=== PATIENT | male | born 2000 | race Caucasian/White ===

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

== ENCOUNTER 2019-04-10 12:56 | Inpatient (IN) ==
[2019-04-10 13:37] LABS: Basophils # (auto) 0.02 K/uL (0-0.2); Basophils % (auto) 0.3 %; Eosinophils # (auto) 0.29 K/uL (0-0.5); Eosinophils % (auto) 5.1 %; Hematocrit (blood only) 27.7 % (42-52); Hemoglobin 8.1 g/dL (14.0-18.0); Immature Granulocytes # (auto) 0.02 K/uL (0.00-0.02); Immature Granulocytes % (auto) 0.3 %; Lymphocytes % (auto) 40.2 %; Mean Corpuscular Hgb Conc 29.2 g/dL (32-36); Mean Corpuscular Volume 62.8 fL (80-100); Monocytes # (auto) 0.87 K/uL (0.11-0.59); Monocytes % (auto) 15.2 %; Neutrophils # (auto) 2.22 K/uL (1.4-6.5); Neutrophils % (auto) 38.9 %; Platelet Count 535 K/uL (130-400); RDW Coefficient of Variation 17.7 % (11.5-14.5); RDW Standard Deviation 40.4 fL (36.4-46.3); Red Blood Count 4.41 M/uL (4.7-6.1); White Blood Count 5.72 K/uL (4.8-10.8)
[2019-04-10 13:48] LABS: iSTAT Creatinine 0.8 mg/dl; iSTAT Hemoglobin 9.2 g/dl (14.0-18.0); iSTAT Ionized Calcium 1.14 mmol/l; iSTAT Potassium 4.1 mEq/L (3.3-5.0)
[2019-04-10 13:51] LABS: Partial Thromboplastin Time 26.8 Seconds (21.0-31.0); Prothrombin Time 9.8 Seconds (9.0-12.0)
[2019-04-10 13:53] LABS: Alanine Aminotransferase 10 U/L (12-78); Aspartate Aminotransferase 10 U/L (15-37); BUN Creatinine Ratio 25.1 (10-20); Blood Urea Nitrogen 21 mg/dl (7-18); Calcium 8.5 mg/dl (8.5-10.1); Carbon Dioxide 25 mmol/L (21-32); Chloride 108 mmol/L (98-107); Creatinine Clr Calc Pharmacy 114.2 ml/min; Est GFR (African American) 148.6; Est GFR (Non-African American) 128.2; Glucose 94 mg/dl (70-99); Potassium 4.2 mmol/L (3.5-5.1); Sodium 140 mmol/L (136-145)
[2019-04-10 13:56] LABS: Albumin Globulin Ratio 0.5 (0.9-2); Alkaline Phosphatase 140 U/L (45-117); Bilirubin,Total < 0.1 mg/dl (0.2-1); Globulin 4.1 gm/dl (2.5-4.0); Total Protein 6.1 gm/dl (6.4-8.2)
[2019-04-10 14:24] LABS: Hypochromasia Present; Microcytosis Present
--- NOTE | 2019-04-10 14:31 | XRay Report ---
XR KUB/Abdomen 1 view CLINICAL HISTORY: constiation constipation COMPARISON STUDY: 04/09/2019 FINDINGS: Persistent extensive colonic fecal load. Slightly improved diameter of the descending colon currently 10 cm. Persistent increased distention of the transverse colon measuring up to 16 cm. This is similar. No significant and are only minimal small bowel distention. No rectal fecal impaction. IMPRESSION: Persistent marked increased fecal load throughout the colon showing a slight improvement in distention at the descending colonic level. Persistent and perhaps slightly progressive distentio n of the transverse colon at 16 cm maximum diameter The above report was generated using voice recognition software. It may contain grammatical, syntax or spelling errors. Electronically signed by: Carlos Beckett M.D. 04/10/2019 2:29 PM
[2019-04-10 15:50] LABS: Immature Retic Fraction 13.7 % (2.3-13.4); Reticulated Hemoglobin 15.2 pg (28.2-36.6); Reticulocyte % 1.3 % (0.5-2.0); Reticulocytes # 0.06 10^6/uL (0.02-0.10)
[2019-04-10 16:00] LABS: Appearance Urine Clear (Clear); Bilirubin Urine Negative (Negative); Blood Urine Negative (Negative); Color Urine Yellow; Glucose Urine UA Negative (Negative); Ketones Urine Negative (Negative); Leukocyte Esterase Urine Negative (Negative); Nitrite Urine Negative (Negative); Protein Urine Negative (Negative); Specific Gravity Urine 1.025 (1.000-1.030); Urobilinogen Urine Negative (Negative); pH Urine 8.5 (4.5-7.5)
[2019-04-10 16:27] LABS: Cdiff Antigen Negative; Cdiff Toxin A+B Negative Cdiff Toxin (Negative)
--- NOTE | 2019-04-10 16:41 | History & Physical Report ---
Date of Service April 10, 2019 Assessment & Plan (1) Microcytic anemia: Dion is a 18 year old male with hx of congenital megacolon s/p partial colon resection presenting to the emergency room with abnormal labs. 1. Microcytic anemia, asymptomatic - hemoglobin 8.1, MCV 62.8 - iron studies are pending - no symptoms of GI bleed and FOBT in ED negative 2. congenital megacolon - s/p partial colon resection - not yet established with GI, but per ED conversation with GI, ?thinking about scoping patient. - GI consulted, appreciate recommendations - Will defer to GI regarding colonoscopy prep 3. Loose stool and stool leakage - may be secondary to impacted stool or more likely limited function of his remaining large intestine to absorb fluid - c. diff and stool studies ordered by ED provider pending 4. dysphagia - may benefit from upper endoscopy to evaluate for reflux vs rings vs stricture. - oral PPI in the meantime, which was originally prescribed by his PCP 5. hypoalbuminemia - secondary to either protein malnutrition (intake vs absorption) vs chronic illness 5. ADHD - continue home Vyvanse 60mg FEN: clears for dinner then NPO at MN + NS at 80/hr. If colonoscopy is not going to be tomorrow, ok to eat. DVT ppx: SCDs CODE: FULL Dispo: pending anemia/GI work up Present on Admission?: Yes (2) ADHD: Present on Admission?: Yes (3) Hypoalbuminemia: Present on Admission?: Yes (4) Megacolon: Present on Admission?: Yes History of Present Illness Dion is a 18 year old male with hx of congential megacolon s/p partial colon resection presenting to the emergency room with abnormal labs. He was seen by his PCP yesterday for abdominal pain which has since resolved. Labs done by his PCP show a new anemia with a hemoglobin of 8.1. Denies dizziness, chest pain. Did take up cigarette smoking 2 weeks ago and notes that this has made him dyspneic with exertion. As a child, he was followed by providers at [facility] in [place] for his megacolon. He has had a resection of part of the large intestine because "it wasn't working". However, grandmother reports that there are still sections of the colon that they were told do not work well that were not able to be resected because it would make the surgery too risky. He has not followed with a GI provider recently. He was referred to Dr. Young as an outpatient, but actually has not yet established with him. He does admit to some intermittent, chronic abdominal pain. Reports that he will pain about once per week, but once he is able to get the stool out, his abdominal pain improves. He reports that his stool is chronically liquidy and he does leak stool. Stool is usually brown liquid. Denies any dark or tarry looking stools. Denies nausea or vomiting. More recently, he has been complaining of difficulty swallowing food. He reports that he feels that the food get stuck in his throat. This is mostly with food that is dry, like bread, or too large. Denies dysphagia with liquids. He has been prescribed both a PPI and H2 wan by his PCP recently, but patient and his family has not had a chance to vegetable picker the prescriptions yet. ED course: KUB showing persistent marked increased fecal load throughout the colon, persistent and ?progressive distention of the transverse colon (16cm in diameter at the max dilation). hemoglobin 8.1 with MCV 62.8 FOBT in the ED was negative (per grandmother, patient declined rectal exam) Electrolytes are within normal range. Primary Care Provider: ALDO Khan Allergies Allergy/AdvReac Type Severity Reaction Status Date / Time No Known Allergies Allergy NONE Unverified 04/10/19 15:01 Home Medications Home Medications Medication Instructions Recorded Confirmed Type lisdexamfetamine [Vyvanse] 60 mg PO DAILY #0 cap 02/13/15 04/10/19 History omeprazole 20 mg capsule,delayed 20 mg PO DAILY #30 cap 04/09/19 04/10/19 Rx release ranitidine 150 mg tablet 150 mg PO DAILY #30 tab 04/09/19 04/10/19 Rx Past Med/Surg History Medical History ADHD Surgical History History of colon resection (Resolved) H/O colonoscopy (Resolved) Social History Feels Safe at Home: Yes Smoking Status: Former smoker Dental Care, Regularly: No Review of Systems Review of Systems: All systems reviewed & are unremarkable except as noted in HPI & below Physical Exam Constitutional: + thin; no acute distress and not ill appearing Eyes: PERRL, conjunctivae normal, anicteric sclerae ENMT: external ear and nose normal, oropharynx normal Neck: normal visual inspection Respiratory: normal respiratory effort, lungs clear to auscultation Cardiovascular: Rate/Rhythm: regular rhythm and + tachycardic Heart Sounds: normal S1 and normal S2; no gallop, no murmur and no cardiac rub Gastrointestinal (Abdomen): Inspection/Auscultation: normal bowel sounds Decreased bowel sounds. Firm but nontender across the upper abdomen. Lower abdomen is soft. No rebound or guarding with exam. Rectal exam deferred. Skin: no rashes, warm and dry Neurologic: moves all extremities; no focal motor deficits Motor/Sensory: no tremor Psychiatric: A+Ox3, euthymic affect Results & Data Vital Signs (Past 12 Hours) Vital Signs Temp Pulse Pulse Resp BP BP Pulse Ox 04/10/19 15:43 107 H 18 118/78 100 04/10/19 13:54 92 H 16 139/87 100 04/10/19 13:01 36.9 C 94 H 20 120/70 100 Code Status & VTE Plan Code Status FULL VTE Prophylaxis Plan VTE Prophylaxis will be ordered: Yes
[2019-04-10] MEDS ORDERED: ACETAMINOPHEN 325 MG TAB PO PRN (18:07)
--- NOTE | 2019-04-10 18:23 | Emergency Department Note ---
Entered by Elena Shields acting as a scribe for History of Present Illness General Chief complaint: Abnormal Labs/Diagnostic Testing Stated complaint: VERY ANEMIC,DOCTOR WORRIED ABOUT BLEEDING Time Seen by Provider: 04/10/19 13:11 Source: patient and family History of Present Illness Provider complaint: doctor referral Onset (ago): hour(s) (today) Location: left and right Quality: + other (anemia) Associated symptoms: + denies other symptoms (abdominal pain, black or bloody stool); no nausea/vomiting The patient is a 18 year old male who presents to the Emergency Department with a doctor referral today secondary to anemia today. His mother states that the patient is seen at [facility] for a megacolon. Per family, the patient has a history of a colon resection. The patient denies having abdominal pain, nausea, and vomiting. He also denies black or bloody stool in addition to rectal bleeding. The patient states that he is not on any blood thinners. Home Medications Home Medications Medication Instructions Recorded Confirmed Type lisdexamfetamine [Vyvanse] 60 mg PO DAILY #0 cap 02/13/15 04/10/19 History omeprazole 20 mg capsule,delayed 20 mg PO DAILY #30 cap 04/09/19 04/10/19 Rx release ranitidine 150 mg tablet 150 mg PO DAILY #30 tab 04/09/19 04/10/19 Rx Allergies Allergy/AdvReac Type Severity Reaction Status Date / Time No Known Allergies Allergy NONE Unverified 04/10/19 15:01 Past Med/Surg History Medical History ADHD Surgical History History of colon resection (Resolved) H/O colonoscopy (Resolved) Family History Family/Other No problems noted. Social History Preferred Language: Danish Communication Ability: Effective Costume Technician Required: No Beliefs That Will Affect Care: None Current Living Situation: Legal Guardian Other Information That Helps Us Care for You: No Feels Safe at Home: Yes Safety Concerns: Feels Safe At This Time Smoking Status: Light tobacco smoker Tobacco Type: cigarettes Cigarettes Per Day: 1 Do You Dip or Chew Tobacco: No Second Hand Exposure: Yes Tobacco Cessation Education Requested by Patient: No Hx Alcohol Use: No Hx Substance Use: No Dental Care, Regularly: No Review of Systems See HPI for pertinent positives & negatives. and A total of 10 systems reviewed and were otherwise negative Physical Exam Vital Signs Vital Signs - 24 hr 04/10/19 13:01 04/10/19 13:54 04/10/19 15:43 Temperature 36.9 C Temperature Source Oral Sepsis Recent Fever Within 48 Hours No Sepsis New/Unexplained Change in Mental Status No Sepsis Action Taken by Nursing No Action Required Pulse Rate 94 H Pulse Rate [Apical] 92 H 107 H Respiratory Rate 20 16 18 Respiratory Effort / Characteristics Non-Labored Spontaneous Non-Labored Spontaneous Respiratory Depth Normal Normal Respiratory Pattern Regular Regular Blood Pressure 120/70 Blood Pressure [Right Arm] 139/87 118/78 Blood Pressure Mean 86 Blood Pressure Mean [Right Arm] 104 91 Blood Pressure Position Sitting Blood Pressure Position [Right Arm] Sitting Pulse Oximetry 100 100 100 Oxygen Delivery Method Room Air Room Air Room Air GENERAL: Patient is awake, alert, and in no acute distress.Patient is resting comfortably and is somewhat anxious. EYES: The conjunctivae are clear. The pupils are round and reactive. EARS, NOSE, MOUTH AND THROAT: The nose is without any evidence of any deformity. Mucous membranes are moist.Tongue is midline NECK: The neck is nontender and supple. RESPIRATORY: Normal respiratory effort is noted. There is no evidence of wheezing rhonchi or rales to auscultation. CARDIOVASCULAR: Regular rate and rhythm noted. There no murmurs rubs or gallops normal S1 normal S2 GASTROINTESTINAL: The abdomen is soft. Abdomen is moderately distended. Bowel sounds are present in all quadrants. Abdomen is nontender. No guarding or rig idity. STOOL SAMPLE: Stool sample was sent. It was heme negative. MUSCULOSKELETAL/EXTREMITIES: There is no evidence of gross deformity. Full range of motion is noted in the hips and shoulders. SKIN: There is no obvious evidence of any rash. There are no petechiae, pallor or cyanosis noted. NEUROLOGIC: Patient is awake alert and oriented x3. Course 1312: The patient was evaluated in room A12B. A history and physical were performed. 1448: I discussed the patient's case with Dr. Cristina who said that he will see the patient as an inpatient. 1459: I updated the patient who verbalized agreement and understanding of the treatment plan. 1512: I discussed the patient's case with Dr. Sarina Resendiz who will evaluate the patient for further management. Consultations Consultation #1: Dr. Cristina Time: 14:48 Consultation #2: Dr. Sarina Resendiz Time: 15:12 Administered Medications Pantoprazole Sodium (Protonix) 40 mg PO QAM LIZZY Stop: 05/11/19 08:59 Last Admin: 04/11/19 09:15 Dose: 40 mg Documented by: [id number] Discontinued Medications Bisacodyl (Dulcolax) 20 mg PO NOW STA Stop: 04/11/19 09:21 Last Admin: 04/11/19 10:33 Dose: 20 mg Documented by: [id number] Sodium Chloride (Nss 1000ml) 1,000 mls @ 80 mls/hr IV .[id number] LIZZY Stop: 05/11/19 00:00 Last Infusion: 04/11/19 16:49 Dose: 0 mls/hr Documented by: [id number] Admin: 04/11/19 10:37 Dose: 80 mls/hr Documented by: [id number] Infusion: 04/11/19 10:37 Dose: 80 mls/hr Documented by: [id number] Infusion: 04/11/19 06:23 Dose: 80 mls/hr Documented by: [id number] Admin: 04/10/19 23:55 Dose: 80 mls/hr Documented by: [id number] Iron Sucrose 300 mg/ Sodium (Chloride) 265 mls @ 176.667 mls/hr IV TODAY ONE Stop: 04/11/19 15:44 Last Infusion: 04/11/19 18:43 Dose: 0 mls/hr Documented by: [id number] Admin: 04/11/19 15:15 Dose: 176.7 mls/hr Documented by: [id number] Miscellaneous (Order Awaiting Action) 1 ea N/A QS LIZZY Stop: 05/11/19 00:00 Last Admin: 04/11/19 10:31 Dose: Not Given Documented by: [id number] Admin: 04/10/19 23:56 Dose: Not Given Documented by: [id number] Polyethylene Glycol (Miralax) 238 gm PO NOW ONE Stop: 04/11/19 18:00 Last Admin: 04/11/19 18:49 Dose: 238 gm Documented by: [id number] Polyethylene Glycol/Electrolytes (Golytely) 16 dose PO TODAY@1000 LIZZY Stop: 04/11/19 10:01 Last Admin: 04/11/19 10:33 Dose: 16 dose Documented by: [id number] Medical Decision Making Differential Diagnosis Differential diagnosis: Etiologies such as biliary colic, cholecystitis, hepatitis, pancreatitis, cardiac disease, pancreatitis, gastritis, peptic ulcer disease, appendicitis, cystitis, diverticulitis, mesenteric ischemia, inflammatory bowel disease, ileus, bowel obstruction, testicular torsion, aortic pathology, shingles, as well as others were considered. Medical Records Attestation: I reviewed the patient's medical records. Home Medications Current Medication List: was personally reviewed by me Laboratory Data Attestation: I reviewed the patient's lab results. Result diagrams: 04/11/19 07:59 04/10/19 13:23 Lab Results 04/10/19 04/10/19 04/10/19 Range/Units 13:19 13:23 13:23 WBC 5.72 (4.8-10.8) K/uL RBC 4.41 L (4.7-6.1) M/uL Hgb 8.1 L (14.0-18.0) g/dL POC Hgb (14.0-18.0) g/dl Hct 27.7 L (42-52) % POC Hct (42-52) % MCV 62.8 L (80-100) fL MCH 18.4 L (25-34) pg MCHC 29.2 L (32-36) g/dL RDW Std Deviation 40.4 (36.4-46.3) fL RDW Coeff of Paul 17.7 H (11.5-14.5) % Plt Count 535 H (130-400) K/uL MPV 8.0 (7.4-10.4) fL Immature Gran % (Auto) 0.3 % Neut % (Auto) 38.9 % Lymph % (Auto) 40.2 % [place] % (Auto) 15.2 % Eos % (Auto) 5.1 % Baso % (Auto) 0.3 % Reticulocyte % (Auto) (0.5-2.0) % Immature Gran # (Auto) 0.02 (0.00-0.02) K/uL Neut # (Auto) 2.22 (1.4-6.5) K/uL Lymph # (Auto) 2.30 (1.2-3.4) K/uL [place] # (Auto) 0.87 H (0.11-0.59) K/uL Eos # (Auto) 0.29 (0-0.5) K/uL Baso # (Auto) 0.02 (0-0.2) K/uL Reticulocyte # (0.02-0.10) 10^6/uL Hypochromasia Present Microcytosis Present Immature Retic Fraction (2.3-13.4) % Retic Hgb Content (28.2-36.6) pg PT 9.8 (9.0-12.0) Seconds INR 1.0 (0.9-1.1) APTT 26.8 (21.0-31.0) Seconds PTT Ratio 1.0 POC Sodium (135-144) mEq/L Sodium (136-145) mmol/L POC Potassium (3.3-5.0) mEq/L Potassium (3.5-5.1) mmol/L POC Chloride (101-112) mEq/L Chloride (98-107) mmol/L Carbon Dioxide (21-32) mmol/L POC Total CO2 (24-31) mEq/l Anion Gap (3-11) POC Anion Gap (16-25) mmol/L POC BUN (7-18) mg/dl BUN (7-18) mg/dl Creatinine (0.6-1.4) mg/dl POC Creatinine mg/dl Est Cr Clr Drug Dosing ml/min Est GFR ( Amer) Est GFR (Non-Af Amer) BUN/Creatinine Ratio (10-20) Glucose (70-99) mg/dl POC Glucose (other) (70-99) mg/dl Calcium (8.5-10.1) mg/dl POC Ioniz Calcium Sonya mmol/l Iron (35-175) mcg/dl TIBC (250-450) mcg/dl Ferritin (8-388) ng/ml Total Bilirubin (0.2-1) mg/dl AST (15-37) U/L ALT (12-78) U/L Alkaline Phosphatase (45-117) U/L Total Protein (6.4-8.2) gm/dl Albumin (3.4-5.0) gm/dl Globulin (2.5-4.0) gm/dl Albumin/Globulin Ratio (0.9-2) Lipase (73-393) U/L Urine Color Urine Appearance (Clear) Urine pH (4.5-7.5) Ur Specific Gilbert (1.000-1.030) Urine Protein (Negative) Urine Glucose (UA) (Negative) Urine Ketones (Negative) Urine Blood (Negative) Urine Nitrite (Negative) Urine Bilirubin (Negative) Urine Urobilinogen (Negative) Ur Leukocyte Esterase (Negative) Stl C. diff Tox B Gene Positive Cdiff Gene H (Neg) Stl C.difficile Tox A&B Negative Cdiff Toxin (Negative) Blood Type Antibody Screen 04/10/19 04/10/19 04/10/19 Range/Units 13:23 13:23 13:23 WBC (4.8-10.8) K/uL RBC (4.7-6.1) M/uL Hgb (14.0-18.0) g/dL POC Hgb (14.0-18.0) g/dl Hct (42-52) % POC Hct (42-52) % MCV (80-100) fL MCH (25-34) pg MCHC (32-36) g/dL RDW Std Deviation (36.4-46.3) fL RDW Coeff of Paul (11.5-14.5) % Plt Count (130-400) K/uL MPV (7.4-10.4) fL Immature Gran % (Auto) % Neut % (Auto) % Lymph % (Auto) % [place] % (Auto) % Eos % (Auto) % Baso % (Auto) % Reticulocyte % (Auto) 1.3 (0.5-2.0) % Immature Gran # (Auto) (0.00-0.02) K/uL Neut # (Auto) (1.4-6.5) K/uL Lymph # (Auto) (1.2-3.4) K/uL [place] # (Auto) (0.11-0.59) K/uL Eos # (Auto) (0-0.5) K/uL Baso # (Auto) (0-0.2) K/uL Reticulocyte # 0.06 (0.02-0.10) 10^6/uL Hypochromasia Microcytosis Immature Retic Fraction 13.7 H (2.3-13.4) % Retic Hgb Content 15.2 L (28.2-36.6) pg PT (9.0-12.0) Seconds INR (0.9-1.1) APTT (21.0-31.0) Seconds PTT Ratio POC Sodium (135-144) mEq/L Sodium 140 (136-145) mmol/L POC Potassium (3.3-5.0) mEq/L Potassium 4.2 (3.5-5.1) mmol/L POC Chloride (101-112) mEq/L Chloride 108 H (98-107) mmol/L Carbon Dioxide 25 (21-32) mmol/L POC Total CO2 (24-31) mEq/l Anion Gap 6.0 (3-11) POC Anion Gap (16-25) mmol/L POC BUN (7-18) mg/dl BUN 21 H (7-18) mg/dl Creatinine 0.82 (0.6-1.4) mg/dl POC Creatinine mg/dl Est Cr Clr Drug Dosing 114.2 ml/min Est GFR ( Amer) 148.6 Est GFR (Non-Af Amer) 128.2 BUN/Creatinine Ratio 25.1 H (10-20) Glucose 94 (70-99) mg/dl POC Glucose (other) (70-99) mg/dl Calcium 8.5 (8.5-10.1) mg/dl POC Ioniz Calcium Sonya mmol/l Iron (35-175) mcg/dl TIBC (250-450) mcg/dl Ferritin (8-388) ng/ml Total Bilirubin < 0.1 L (0.2-1) mg/dl AST 10 L (15-37) U/L ALT 10 L (12-78) U/L Alkaline Phosphatase 140 H (45-117) U/L Total Protein 6.1 L (6.4-8.2) gm/dl Albumin 2.0 L (3.4-5.0) gm/dl Globulin 4.1 H (2.5-4.0) gm/dl Albumin/Globulin Ratio 0.5 L (0.9-2) Lipase 120 (73-393) U/L Urine Color Urine Appearance (Clear) Urine pH (4.5-7.5) Ur Specific Gilbert (1.000-1.030) Urine Protein (Negative) Urine Glucose (UA) (Negative) Urine Ketones (Negative) Urine Blood (Negative) Urine Nitrite (Negative) Urine Bilirubin (Negative) Urine Urobilinogen (Negative) Ur Leukocyte Esterase (Negative) Stl C. diff Tox B Gene (Neg) Stl C.difficile Tox A&B (Negative) Blood Type O Positive Antibody Screen NEGATIVE 04/10/19 04/10/19 04/10/19 Range/Units 13:23 13:35 15:45 WBC (4.8-10.8) K/uL RBC (4.7-6.1) M/uL Hgb (14.0-18.0) g/dL POC Hgb 9.2 L (14.0-18.0) g/dl Hct (42-52) % POC Hct 27 L (42-52) % MCV (80-100) fL MCH (25-34) pg MCHC (32-36) g/dL RDW Std Deviation (36.4-46.3) fL RDW Coeff of Paul (11.5-14.5) % Plt Count (130-400) K/uL MPV (7.4-10.4) fL Immature Gran % (Auto) % Neut % (Auto) % Lymph % (Auto) % [place] % (Auto) % Eos % (Auto) % Baso % (Auto) % Reticulocyte % (Auto) (0.5-2.0) % Immature Gran # (Auto) (0.00-0.02) K/uL Neut # (Auto) (1.4-6.5) K/uL Lymph # (Auto) (1.2-3.4) K/uL [place] # (Auto) (0.11-0.59) K/uL Eos # (Auto) (0-0.5) K/uL Baso # (Auto) (0-0.2) K/uL Reticulocyte # (0.02-0.10) 10^6/uL Hypochromasia Microcytosis Immature Retic Fraction (2.3-13.4) % Retic Hgb Content (28.2-36.6) pg PT (9.0-12.0) Seconds INR (0.9-1.1) APTT (21.0-31.0) Seconds PTT Ratio POC Sodium 137 (135-144) mEq/L Sodium (136-145) mmol/L POC Potassium 4.1 (3.3-5.0) mEq/L Potassium (3.5-5.1) mmol/L POC Chloride 104 (101-112) mEq/L Chloride (98-107) mmol/L Carbon Dioxide (21-32) mmol/L POC Total CO2 25 (24-31) mEq/l Anion Gap (3-11) POC Anion Gap 13.0 L (16-25) mmol/L POC BUN 19 H (7-18) mg/dl BUN (7-18) mg/dl Creatinine (0.6-1.4) mg/dl POC Creatinine 0.8 mg/dl Est Cr Clr Drug Dosing ml/min Est GFR ( Amer) Est GFR (Non-Af Amer) BUN/Creatinine Ratio (10-20) Glucose (70-99) mg/dl POC Glucose (other) 93 (70-99) mg/dl Calcium (8.5-10.1) mg/dl POC Ioniz Calcium Sonya 1.14 mmol/l Iron 13 L (35-175) mcg/dl TIBC 280 (250-450) mcg/dl Ferritin 3.8 L (8-388) ng/ml Total Bilirubin (0.2-1) mg/dl AST (15-37) U/L ALT (12-78) U/L Alkaline Phosphatase (45-117) U/L Total Protein (6.4-8.2) gm/dl Albumin (3.4-5.0) gm/dl Globulin (2.5-4.0) gm/dl Albumin/Globulin Ratio (0.9-2) Lipase (73-393) U/L Urine Color Yellow Urine Appearance Clear (Clear) Urine pH 8.5 H (4.5-7.5) Ur Specific Gilbert 1.025 (1.000-1.030) Urine Protein Negative (Negative) Urine Glucose (UA) Negative (Negative) Urine Ketones Negative (Negative) Urine Blood Negative (Negative) Urine Nitrite Negative (Negative) Urine Bilirubin Negative (Negative) Urine Urobilinogen Negative (Negative) Ur Leukocyte Esterase Negative (Negative) Stl C. diff Tox B Gene (Neg) Stl C.difficile Tox A&B (Negative) Blood Type Antibody Screen Imaging Data Radiologist's Impression: Radiology results as stated below per my review and the radiologist's interpretation: XR KUB/Abdomen 1 view CLINICAL HISTORY: constiation constipation COMPARISON STUDY: 04/09/2019 FINDINGS: Persistent extensive colonic fecal load. Slightly improved diameter of the descending colon currently 10 cm. Persistent increased distention of the transverse colon measuring up to 16 cm. This is similar. No significant and are only minimal small bowel distention. No rectal fecal impaction. IMPRESSION: Persistent marked increased fecal load throughout the colon showing a slight improvement in distention at the descending colonic level. Persistent and perhaps slightly progressive distention of the transverse colon at 16 cm maximum diameter The above report was generated using voice recognition software. It may contain grammatical, syntax or spelling errors. Electronically signed by: Carlos Beckett M.D. 04/10/2019 2:29 PM Blood Pressure Blood Pressure Findings: Normal blood pressure MDM Narrative The patient is a 18-year-old male with a history of congenital megacolon who presented to the emergency department at the request of his primary care physician for abnormal laboratory studies. The patient was found anemia which was new. His stool was heme-negative. The patient's exam appear to be consistent with significantly increased fecal load. I discussed the patient's laboratory and radiographic studies with him and his mother. [facility] He did recommend that the patient would require further work-up and possibly a colonoscopy. For this reason I discussed his case with the on-call [facility] hospitalist. They have agreed to evaluate the patient in the emergency department for further management and disposition. The patient had a type and screen sent. Reticulocyte count was elevated. Impression & Plan Megacolon, Anemia Discharge Plan Visit Data *Final* Discharge Date/Time: 04/10/19 17:56 Chief Complaint: Abnormal Labs/Diagnostic Testing Stated Complaint: VERY ANEMIC,DOCTOR WORRIED ABOUT BLEEDING ED Provider: Julio C Hair Discharge Problem: Megacolon, Anemia Patient Disposition: Admitted As Inpatient Discharge Instructions Interventions: ED Discharge Assessment Last Done: 04/10/19 17:56 The scribe's documentation has been prepared under my direction and personally reviewed by me in its entirety. I confirm that the note above accurately reflects all work, treatment, procedures, and medical decision making performed by me.
[2019-04-10 19:42] LABS: Ferritin 3.8 ng/ml (8-388)
[2019-04-10] MEDS: SODIUM CHLORIDE 0.9% 1000ML 1,000 ML IV SCH (23:55)
--- NOTE | 2019-04-11 07:30 | Family Medicine Progress Note ---
Date of Service April 11, 2019 Assessment & Plan (1) Microcytic anemia: Dion is a 18 year old male with hx of congenital megacolon s/p partial colon resection sent to the emergency room by his PCP in light of a outpatient lab abnormality (Hgb 8.1). 1. Microcytic anemia, secondary to iron deficiency - hemoglobin 8.1 on admission (04/10), 7.6 today (04/11); MCV 62.8 - Fe level low 13, TIBC normal at 280, Ferritin low at 3.8 - no symptoms of GI bleed and FOBT in ED negative -ordered IV iron 300mg today (04/11); will get subsequent IV infusion as outpatient -no oral iron supplement given patient's GI discomfort 2. congenital megacolon - s/p partial colon resection - not yet established with outpatient GI - GI consulted, will do upper and lower endoscopy tomorrow (04/11) - GI ordered placed order for colonoscopy prep 3. Loose stool and stool leakage - may be secondary to impacted stool or more likely limited function of his remaining large intestine to absorb fluid - c. diff study: gene positive toxin negative, we will hold off on treatment -stool studies showing no growth of shigella, salmonella and campylobacter (preliminary read) 4. dysphagia - GI performing upper and lower endoscopy tomorrow (04/11) - oral PPI in the meantime, which was originally prescribed by his PCP 5. hypoalbuminemia - secondary to either protein malnutrition (intake vs absorption) vs chronic illness 5. ADHD - continue home Vyvanse 60mg FEN: clears for dinner; NPO at MN + NS at 80/hr. . DVT ppx: SCDs CODE: FULL Dispo: pending anemia/GI work up (2) ADHD: (3) Hypoalbuminemia: (4) Megacolon: Supervising Physician Co-Signing Physician Notes Patient seen and examined with Flash Jeffries and Luisana. Agree with history, exam findings, assessment and plan of care as outlined. Dion is a 18 year old male with hx of congenital megacolon s/p partial colon resection presenting to the emergency room with abnormal labs. Doing well today. No complaints. Starting colonoscopy prep this evening. 1. Microcytic anemia/iron deficiency anemia - hemoglobin 8.1, MCV 62.8. iron 13, TIBC, 280, ferritin 3.8. - IV iron today 2. congenital megacolon - s/p partial colon resection - GI consulted, plan for upper and lower endoscopy tomorrow. 3. Loose stool and stool leakage - may be secondary to impacted stool or more likely limited function of his remaining large intestine to absorb fluid - c. diff gene pos, toxin neg. Other stool studies ordered by ED provider pending 4. dysphagia - may benefit from upper endoscopy to evaluate for reflux vs rings vs stricture. - oral PPI in the meantime, which was originally prescribed by his PCP 5. hypoalbuminemia - secondary to either protein malnutrition (intake vs absorption) vs chronic illness 5. ADHD - continue home Vyvanse 60mg Subjective No events overnight. Patient much more interactive today compared to day of admission (04/10). He is NPO. Urinating normally. Admits to mild, diffuse abdominal pain. Family friend present during exam. Review of Systems Gastrointestinal: + abdominal pain; no blood in stools chronic stool leakage Physical Exam Constitutional: well developed and well nourished; no acute distress Eyes: pallor in palprebral conjunctiva bilaterally Respiratory: normal respiratory effort, lungs clear to auscultation Cardiovascular: RRR, no murmur, no edema Heart Sounds: normal S1 and normal S2 Gastrointestinal (Abdomen): normal bowel sounds, soft, nontender, no hepatosplenomegaly Inspection/Auscultation: + abdominal surgical scar; abdomen not distended Skin: no jaundice Neurologic: awake Psychiatric: Orientation: oriented x 3 and cooperative Results & Data Vital Signs (Past 12 Hours) Vital Signs Temp Pulse Resp BP Pulse Ox 04/11/19 00:10 36.9 C 65 16 110/68 99 Laboratory Results 04/11/19 04/10/19 Range/Units 07:59 13:23 WBC 4.51 L (4.8-10.8) K/uL RBC 4.25 L (4.7-6.1) M/uL Hgb 7.6 L (14.0-18.0) g/dL Hct 26.7 L (42-52) % MCV 62.8 L (80-100) fL MCH 17.9 L (25-34) pg MCHC 28.5 L (32-36) g/dL RDW Std Deviation 40.3 (36.4-46.3) fL RDW Coeff of Paul 17.5 H (11.5-14.5) % Plt Count 454 H (130-400) K/uL MPV 8.2 (7.4-10.4) fL Immature Gran % (Auto) 0.2 % Neut % (Auto) 44.9 % Lymph % (Auto) 35.5 % Noble % (Auto) 14.6 % Eos % (Auto) 4.4 % Baso % (Auto) 0.4 % Immature Gran # (Auto) 0.01 (0.00-0.02) K/uL Neut # (Auto) 2.02 (1.4-6.5) K/uL Lymph # (Auto) 1.60 (1.2-3.4) K/uL [place] # (Auto) 0.66 H (0.11-0.59) K/uL Eos # (Auto) 0.20 (0-0.5) K/uL Baso # (Auto) 0.02 (0-0.2) K/uL Hypochromasia Present Microcytosis Present Iron 13 L (35-175) mcg/dl TIBC 280 (250-450) mcg/dl Ferritin 3.8 L (8-388) ng/ml Medications Administered Current Inpatient Medications Acetaminophen (Tylenol) 650 mg PO Q4H PRN PRN Reason: pain/fever Stop: 05/10/19 18:06 Vyvanse 50mg Cap 1 ea PO QAM [facility] Stop: 05/12/19 08:59 Patient's Own Controlled Med - Vyvanse 50mg 1 ea PO QAM LIZZY Stop: 04/26/19 08:59 Pantoprazole Sodium (Protonix) 40 mg PO QAM LIZZY Stop: 05/11/19 08:59 Last Admin: 04/11/19 09:15 Dose: 40 mg Documented by: PG Care Time/CCT Total # of Minutes Spent Total Time Spent with Patient: Total time spent is greater than 50% in co ordination of care (as documented) at patient's floor/unit and/or counseling patient: Resident Activity Tracking Resident Involvement: Resident Care Provided Care Provided: Adult Hospital Medicine
[2019-04-11 08:37] LABS: Hematocrit (blood only) 26.7 % (42-52); Hemoglobin 7.6 g/dL (14.0-18.0); Mean Corpuscular Hgb Conc 28.5 g/dL (32-36); Mean Corpuscular Volume 62.8 fL (80-100); Mean Platelet Volume 8.2 fL (7.4-10.4); Platelet Count 454 K/uL (130-400); RDW Coefficient of Variation 17.5 % (11.5-14.5); RDW Standard Deviation 40.3 fL (36.4-46.3); Red Blood Count 4.25 M/uL (4.7-6.1); White Blood Count 4.51 K/uL (4.8-10.8)
[2019-04-11 08:57] LABS: Basophils # (auto) 0.02 K/uL (0-0.2); Basophils % (auto) 0.4 %; Eosinophils % (auto) 4.4 %; Hypochromasia Present; Immature Granulocytes # (auto) 0.01 K/uL (0.00-0.02); Immature Granulocytes % (auto) 0.2 %; Lymphocytes % (auto) 35.5 %; Microcytosis Present; Monocytes # (auto) 0.66 K/uL (0.11-0.59); Monocytes % (auto) 14.6 %; Neutrophils # (auto) 2.02 K/uL (1.4-6.5); Neutrophils % (auto) 44.9 %
[2019-04-11] MEDS: PANTOprazole 40 MG TAB PO SCH (09:15)
[2019-04-11] MEDS ORDERED: BISACODYL 5 MG TABEC PO STA (09:20)
--- NOTE | 2019-04-11 09:40 | Gastrointestinal Consultation ---
Date of Consultation April 11, 2019 Assessment & Plan (1) Iron deficiency anemia: (2) Megacolon: (3) Dysphagia: 1. Clear liquid diet today with NPO after midnight except sips with meds. 2. Golytely bowel prep with 4 Dulcolax tablets today. Per grandmother request, will start prep now as prior preps have been ineffective. 3. EGD and colonoscopy tomorrow with Dr. Young. 4. Additional recommendations pending results of testing. Supervising Physician Co-Signing Physician Notes Agree with ALDO Mcginnis as above Abd: Soft, NT, ND, +BS Continue current therapy Proceed with EGD and Colonoscopy in AM History of Present Illness Reason for Consultation: Anemia and megacolon Requesting Physician: Dr. 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 History is provided by both the patient and his Grandmother with whom he resides. She states the patient has been nonadherent with his bowel regimen which includes MiraLAX. The patient states he has gone "months" without a bowel movement in the past. Usually, however, he will pass some stool with stimulant laxatives but usually is passing liquid stools and does have associated FI. Abdominal pains wax and wane but he has continued abdominal distention. KUB yesterday demonstrated "marked fecal load" although slight improvement in distention from prior imaging but persistently dilated transverse colon with maximal diameter of 16 cm. Currently, he rates his pain as 0/10. No nausea or vomiting, bloody or melanotic stools. He does report, however, that he has been having a new onset of dysphagia which he describes as the feeling that medications are becoming stuck. No dysphagia to solids or liquids other than pizza "the other night". Has been placed on a NPO status. Laboratory testing this morning included a WBC 4.51, Hgb 7.6, HCT 26.7%, and MCV 62.8 this morning. Ferritin was 3.8. Normal electrolytes and creatinine. Allergies Allergy/AdvReac Type Severity Reaction Status Date / Time No Known Allergies Allergy NONE Unverified 04/10/19 15:01 Home Medications Home Medications Medication Instructions Recorded Confirmed Type lisdexamfetamine [Vyvanse] 60 mg PO DAILY #0 cap 02/13/15 04/10/19 History omeprazole 20 mg capsule,delayed 20 mg PO DAILY #30 cap 04/09/19 04/10/19 Rx release ranitidine 150 mg tablet 150 mg PO DAILY #30 tab 04/09/19 04/10/19 Rx Patient History Medical History ADHD Surgical History History of colon resection (Resolved) H/O colonoscopy (Resolved) Family History Family/Other No problems noted. 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 Beliefs That Will Affect Care: None Current Living Situation: Legal Guardian Other Information That Helps Us Care for You: No Feels Safe at Home: Yes Safety Concerns: Feels Safe At This Time Smoking Status: Light tobacco smoker Tobacco Type: cigarettes Cigarettes Per Day: 1 Do You Dip or Chew Tobacco: No Second Hand Exposure: Yes Tobacco Cessati on Education Requested by Patient: No Hx Alcohol Use: No Hx Substance Use: No Dental Care, Regularly: No Review of Systems Review of Systems: All systems reviewed & are unremarkable except as noted in HPI & below Physical Exam Constitutional: WD/WN, vitals as above Eyes: EOM intact bilaterally Neck: normal appearance Respiratory: normal respiratory effort, lungs clear to auscultation Cardiovascular: Rate/Rhythm: regular rate and regular rhythm Gastrointestinal (Abdomen): Inspection/Auscultation: + abdomen distended and + hypoactive bowel sounds Percussion/Palpation: + abdomen firm; abdomen nontender Musculoskeletal: Extremities: no cyanosis and no clubbing Skin: no rashes, warm and dry Psychiatric: A+Ox3, euthymic affect Results & Data Vital Signs (Past 12 Hours) Vital Signs Temp Pulse Pulse Resp BP BP Pulse Ox 04/11/19 07:40 37.0 C 72 18 120/80 100 04/11/19 00:10 36.9 C 65 16 110/68 99 Laboratory Results Abnormal lab results 04/10/19 04/10/19 04/10/19 Range/Units 13:19 13:23 13:23 WBC (4.8-10.8) K/uL RBC 4.41 L (4.7-6.1) M/uL Hgb 8.1 L (14.0-18.0) g/dL POC Hgb (14.0-18.0) g/dl Hct 27.7 L (42-52) % POC Hct (42-52) % MCV 62.8 L (80-100) fL MCH 18.4 L (25-34) pg MCHC 29.2 L (32-36) g/dL RDW Coeff of Paul 17.7 H (11.5-14.5) % Plt Count 535 H (130-400) K/uL Dickey # (Auto) 0.87 H (0.11-0.59) K/uL Immature Retic Fraction (2.3-13.4) % Retic Hgb Content (28.2-36.6) pg Chloride 108 H (98-107) mmol/L POC Anion Gap (16-25) mmol/L POC BUN (7-18) mg/dl BUN 21 H (7-18) mg/dl BUN/Creatinine Ratio 25.1 H (10-20) Iron (35-175) mcg/dl Ferritin (8-388) ng/ml Total Bilirubin < 0.1 L (0.2-1) mg/dl AST 10 L (15-37) U/L ALT 10 L (12-78) U/L Alkaline Phosphatase 140 H (45-117) U/L Total Protein 6.1 L (6.4-8.2) gm/dl Albumin 2.0 L (3.4-5.0) gm/dl Globulin 4.1 H (2.5-4.0) gm/dl Albumin/Globulin Ratio 0.5 L (0.9-2) Urine pH (4.5-7.5) Stl C. diff Tox B Gene Positive Cdiff Gene H (Neg) 04/10/19 04/10/19 04/10/19 Range/Units 13:23 13:23 13:35 WBC (4.8-10.8) K/uL RBC (4.7-6.1) M/uL Hgb (14.0-18.0) g/dL POC Hgb 9.2 L (14.0-18.0) g/dl Hct (42-52) % POC Hct 27 L (42-52) % MCV (80-100) fL MCH (25-34) pg MCHC (32-36) g/dL RDW Coeff of Paul (11.5-14.5) % Plt Count (130-400) K/uL Dickey # (Auto) (0.11-0.59) K/uL Immature Retic Fraction 13.7 H (2.3-13.4) % Retic Hgb Content 15.2 L (28.2-36.6) pg Chloride (98-107) mmol/L POC Anion Gap 13.0 L (16-25) mmol/L POC BUN 19 H (7-18) mg/dl BUN (7-18) mg/dl BUN/Creatinine Ratio (10-20) Iron 13 L (35-175) mcg/dl Ferritin 3.8 L (8-388) ng/ml Total Bilirubin (0.2-1) mg/dl AST (15-37) U/L ALT (12-78) U/L Alkaline Phosphatase (45-117) U/L Total Protein (6.4-8.2) gm/dl Albumin (3.4-5.0) gm/dl Globulin (2.5-4.0) gm/dl Albumin/Globulin Ratio (0.9-2) Urine pH (4.5-7.5) Stl C. diff Tox B Gene (Neg) 04/10/19 04/11/19 Range/Units 15:45 07:59 WBC 4.51 L (4.8-10.8) K/uL RBC 4.25 L (4.7-6.1) M/uL Hgb 7.6 L (14.0-18.0) g/dL POC Hgb (14.0-18.0) g/dl Hct 26.7 L (42-52) % POC Hct (42-52) % MCV 62.8 L (80-100) fL MCH 17.9 L (25-34) pg MCHC 28.5 L (32-36) g/dL RDW Coeff of Paul 17.5 H (11.5-14.5) % Plt Count 454 H (130-400) K/uL Dickey # (Auto) 0.66 H (0.11-0.59) K/uL Immature Retic Fraction (2.3-13.4) % Retic Hgb Content (28.2-36.6) pg Chloride (98-107) mmol/L POC Anion Gap (16-25) mmol/L POC BUN (7-18) mg/dl BUN (7-18) mg/dl BUN/Creatinine Ratio (10-20) Iron (35-175) mcg/dl Ferritin (8-388) ng/ml Total Bilirubin (0.2-1) mg/dl AST (15-37) U/L ALT (12-78) U/L Alkaline Phosphatase (45-117) U/L Total Protein (6.4-8.2) gm/dl Albumin (3.4-5.0) gm/dl Globulin (2.5-4.0) gm/dl Albumin/Globulin Ratio (0.9-2) Urine pH 8.5 H (4.5-7.5) Stl C. diff Tox B Gene (Neg)
[2019-04-11] MEDS ORDERED: LAVAGE SOLUTION 4000ML PO SCH (10:00)
[2019-04-11] MEDS: SODIUM CHLORIDE 0.9% 1000ML 1,000 ML IV SCH (10:37)
[2019-04-11] MEDS ORDERED: IRON SUCROSE 300 MG in SODIUM CHLORIDE 0.9% 250 ML IV ONE (14:15)
[2019-04-11] MEDS ORDERED: POLYETHYLENE GLYCOL 3350 238 GM BTL PO ONE (17:59)
--- NOTE | 2019-04-12 08:08 | Family Medicine Progress Note ---
Date of Service April 12, 2019 Assessment & Plan (1) Microcytic anemia: Dion is a 18 year old male with hx of congenital megacolon s/p partial colon resection admitted on 04/11/19 for iron deficiency anemia. 1. Microcytic anemia, secondary to iron deficiency - hemoglobin 8.1 on admission (04/10), 7.6 today (04/11); MCV 62.8 - Fe level low 13, TIBC normal at 280, Ferritin low at 3.8 - no symptoms of GI bleed and FOBT in ED negative -ordered IV iron 300mg yesterday (04/11); will get subsequent IV infusion as outpatient -no oral iron supplement given patient's GI discomfort 2. congenital megacolon - s/p partial colon resection - not yet established with outpatient GI - upper and lower endoscopies today (04/12) 3. Loose stool and stool leakage - may be secondary to impacted stool or more likely limited function of his remaining large intestine to absorb fluid - c. diff study: gene positive toxin negative, we will hold off on treatment -stool studies showing no growth of shigella, salmonella and campylobacter (preliminary read) 4. dysphagia - GI performing upper and lower endoscopy today (04/12) - oral PPI in the meantime, which was originally prescribed by his PCP 5. hypoalbuminemia - secondary to either protein malnutrition (intake vs absorption) vs chronic illness 5. ADHD - continue home Vyvanse 60mg FEN: DVT ppx: SCDs CODE: FULL Dispo: pending anemia/GI work up (2) ADHD: (3) Hypoalbuminemia: (4) Megacolon: Subjective Dion had no events over night. He was averse to the taste of to golytle colonoscopy prep, so GI ordered the Miralax protcol instead (although his grandmother states that this regimen has generally not been effective for his previous scopes). He is scheduled to have this upper and lower endoscopy today with Dr. Young. Review of Systems Constitutional: no fever, chills, night sweats Respiratory: no dyspnea Cardiovascular: no chest pain Gastrointestinal: stool leakage, which is chronic Physical Exam Constitutional: well developed, well nourished and cooperative; no acute distress Eyes: + anicteric sclerae Respiratory: normal respiratory effort, lungs clear to auscultation Cardiovascular: RRR, no murmur, no edema Heart Sounds: normal S1 and normal S2; no gallop, no murmur and no cardiac rub Gastrointestinal (Abdomen): Inspection/Auscultation: + abdominal surgical scar Neurologic: awake; no focal motor deficits Psychiatric: Orientation: oriented x 3 and cooperative Results & Data Vital Signs (Past 12 Hours) Vital Signs Temp Pulse Resp BP BP Pulse Ox 04/12/19 07:13 36.5 C 81 16 108/66 98 04/11/19 23:37 37.1 C 83 16 105/63 97 PG Care Time/CCT Total # of Minutes Spent Total Time Spent with Patient: Total time spent is greater than 50% in coordination of care (as documented) at patient's floor/unit and/or counseling patient: Resident Activity Tracking Resident Involvement: Resident Care Provided Care Provided: Adult Hospital Medicine
[2019-04-12 08:19] LABS: Hematocrit (blood only) 25.7 % (42-52); Hemoglobin 7.4 g/dL (14.0-18.0); Mean Corpuscular Hgb Conc 28.8 g/dL (32-36); Mean Corpuscular Volume 61.2 fL (80-100); Mean Platelet Volume 7.9 fL (7.4-10.4); Platelet Count 459 K/uL (130-400); RDW Coefficient of Variation 17.7 % (11.5-14.5); RDW Standard Deviation 39.2 fL (36.4-46.3); White Blood Count 4.75 K/uL (4.8-10.8)
[2019-04-12] MEDS: PANTOprazole 40 MG TAB PO SCH (08:22)
[2019-04-12 08:38] LABS: Anisocytosis Present; Basophils # (auto) 0.01 K/uL (0-0.2); Basophils % (auto) 0.2 %; Eosinophils # (auto) 0.15 K/uL (0-0.5); Eosinophils % (auto) 3.2 %; Hypochromasia Present; Lymphocytes # (auto) 1.48 K/uL (1.2-3.4); Lymphocytes % (auto) 31.2 %; Microcytosis Present; Monocytes # (auto) 0.86 K/uL (0.11-0.59); Monocytes % (auto) 18.1 %; Neutrophils # (auto) 2.25 K/uL (1.4-6.5); Neutrophils % (auto) 47.3 %; Poikilocytosis Present
[2019-04-12] MEDS ORDERED: LISDEXAMFETAMINE PO SCH (09:00)
[2019-04-12] MEDS ORDERED: VYVANSE 50 MG PO SCH (09:00)
--- NOTE | 2019-04-12 09:26 | History & Physical Bridge Note ---
Date of Service April 12, 2019 History & Physical Bridge Note I have examined the patient, reviewed the History & Physical and in the interval since the performance of the History & Physical I have noted the following changes of clinical significance: Patient reports improvement in abdominal distention after drinking MiraLAX prep for colonoscopy today. Denies any chest pain, shortness of breath, syncope or fatigue. Passing liquid brown stools. No overt GIB sx. Cardiac: RRR, no murmurs, rubs or gallops. Pulmonary: CTA bilaterally. Gastrointestinal: Abdomen softly distended. + bowel sounds. No tenderness to palpation. A/P: VIC with megacolon. -Proceed with EGD and colonoscopy today. -Additional recommendations pending results of testing. Supervising Physician Co-Signing Physician Notes Agree with ALDO Mcginnis as above Abd: Soft, NT, distended slightly, +BS Continue current therapy Proceed with EGD and colonoscopy.
[2019-04-12] MEDS ORDERED: PROPOFOL IV EMULSION 10 MG/ML 20 ML VIAL IV ONE (09:53)
[2019-04-12] MEDS ORDERED: LIDOCAINE HCL 2% 2 ML VIAL/AMP(20MG/ML) INFIL ONE ×2 (09:53→10:00)
--- NOTE | 2019-04-12 09:57 | Anesthesiology Consultation ---
Date of Service April 12, 2019 Assessment & Plan Chart Review Chart Review: Acceptable Risk for Surgery ASA ASA2 Proposed Anesthesia Anesthesia Type: MAC Risk / Benefits Reviewed With: PT / POA / Parent / Guardian, Accepts Plan and Informed Consent Obtained History Surgery Operation Date: 04/12/19 08:15 Proposed Procedures p Colonoscopy EGD Dr. Hector Young, DO Height/Weight Height: 5 ft 5 in Weight: 55.7 kg Allergies Allergy/AdvReac Type Severity Reaction Status Date / Time No Known Allergies Allergy NONE Unverified 04/10/19 15:01 Medications Home Medications Medication Instructions Recorded Confirmed Last Taken lisdexamfetamine [Vyvanse] 60 mg PO DAILY #0 cap 02/13/15 04/10/19 04/10/19 omeprazole 20 mg capsule,delayed 20 mg PO DAILY #30 cap 04/09/19 04/10/19 Unknown release ranitidine 150 mg tablet 150 mg PO DAILY #30 tab 04/09/19 04/10/19 Unknown Active Medications Generic Name Dose Route Start Last Admin Trade Name Little PRN Reason Stop Dose Admin Vyvanse 50mg Cap 1 ea 04/12/19 09:00 04/12/19 08:22 PO 05/12/19 08:59 50 mg QAM LIZZY Administration Patient's Own 1 ea 04/12/19 09:00 04/12/19 08:22 Controlled Med - PO 04/26/19 08:59 Not Given Vyvanse 50mg QAM LIZZY Pantoprazole Sodium 40 mg 04/11/19 09:00 04/12/19 08:22 Protonix PO 05/11/19 08:59 40 mg QAM LIZZY Administration NPO Date Last Intake of Fluids: 04/11/19 Time Last Intake of Fluids: 23:59 Time Last Intake of Solids: 23:59 Past Medical History Medical History ADHD Exercise / Class Metabolic Activity III < 4 Walking/Shop/Light housework Past Family History Family History Family/Other No problems noted. Past Surgical History Surgical History History of colon resection (Resolved) H/O colonoscopy (Resolved) Past Anesthesia History No Hx of Anesthesia Complications and No Family Hx of Anesthesia Complications History of PONV No Hx of PONV and No Hx of Motion Sickness Social History Smoking Status: Light tobacco smoker tobacco type: cigarettes Smoking cigarettes per day: 1 Do You Dip or Chew Tobacco: No Hx Alcohol Use: No Hx Substance Use: No Physical Exam Vital Signs Last Vital Signs Temp 36.5 C 04/12/19 07:13 Pulse 81 04/12/19 07:13 Resp 16 04/12/19 07:13 BP 108/66 04/12/19 07:13 Pulse Ox 98 04/12/19 07:13 ENMT Mouth: + small oral opening Thyromental Distance: > or= 3.5 Finger Breadths Mallampati Class: II torus palatinus Neck normal visual inspection Respiratory normal respiratory effort Auscultation: lungs clear to auscultation bilaterally Cardiovascular Rate/Rhythm: regular rate and regular rhythm Testing Laboratory Results 04/12/19 07:59 04/10/19 13:23 PT 9.8 Seconds (9.0-12.0) 04/10/19 13:23 INR 1.0 (0.9-1.1) 04/10/19 13:23 APTT 26.8 Seconds (21.0-31.0) 04/10/19 13:23 Urine Color Yellow 04/10/19 15:45 Urine Appearance Clear (Clear) 04/10/19 15:45 Urine pH 8.5 (4.5-7.5) H 04/10/19 15:45 Ur Specific [place] 1.025 (1.000-1.030) 04/10/19 15:45 Urine Protein Negative (Negative) 04/10/19 15:45 Urine Glucose (UA) Negative (Negative) 04/10/19 15:45 Urine Ketones Negative (Negative) 04/10/19 15:45 Urine Nitrite Negative (Negative) 04/10/19 15:45 Ur Leukocyte Esterase Negative (Negative) 04/10/19 15:45 Blood Type O Positive 04/10/19 13:23 Antibody Screen NEGATIVE 04/10/19 13:23 04/10/19 13:19 Escherichia coli Shiga Toxins Test - Preliminary Stool Stool Culture - Preliminary No Salmonella isolated to date, No Shigella isolated to date, No Campylobacter jejuni isolated to date. 04/10/19 13:19 WBC Smear - Final Stool
[2019-04-12] MEDS ORDERED: MIDAZOLAM HCL 1 MG/ML 2ML VIAL ONE (10:07)
[2019-04-12] MEDS ORDERED: fentaNYL citrate 100 MCG/2 ML VIAL ONE (10:23)
--- NOTE | 2019-04-12 10:31 | GI REPORT ---
Patient Name: Dion Mcdowell Procedure Date: 04/12/2019 9:54 AM Date of : 2000 Admit Type: Inpatient Age: 19 Gender: Male Attending MD: Artis Young DO Procedure: Colonoscopy Providers: Artis Young DO Referring MD: Kristian Pfeiffer Indications: Iron deficiency anemia, Abnormal CT of the GI tract Medicines: Monitored Anesthesia Care Complications: No immediate complications. Estimated Blood Loss: Estimated blood loss: none. Procedure: Pre-Anesthesia Assessment: - Prior to the procedure, a History and Physical was performed, and patient medications and allergies were reviewed. The patient's tolerance of previous anesthesia was also reviewed. The risks and benefits of the procedure and the sedation options and risks were discussed with the patient. All questions were answered, and informed consent was obtained. Prior Anticoagulants: The patient has taken no previous anticoagulant or antiplatelet agents. ASA Grade Assessment: II - A patient with mild systemic disease. After reviewing the risks and benefits, the patient was deemed in satisfactory condition to undergo the procedure. After I obtained informed consent, the scope was passed under direct vision. Throughout the procedure, the patient's blood pressure, pulse, and oxygen saturations were monitored continuously. The Colonoscope was introduced through the anus with the intention of advancing to the ileum. The scope was advanced to the sigmoid colon before the procedure was aborted. Medications were given. The colonoscopy was performed without difficulty. The patient tolerated the procedure well. The quality of the bowel preparation was 100 percent obscured. No anatomical landmarks were photographed. Findings: The perianal and digital rectal examinations were normal. Copious quantities of semi-solid stool was found in the rectum and in the sigmoid colon, precluding visualization. Impression: - Stool in the rectum and in the sigmoid colon. - No specimens collected. Recommendation: - [facility] for [facility] care. - Clear liquid diet. - Continue present medications. - Repeat colonoscopy tomorrow because the bowel preparation was poor. Artis Young DO 04/12/2019 10:30:45 AM This report has been signed electronically. Note Initiated On: 04/12/2019 9:54 AM Number of Addenda: 0 I attest to the content of the Intraoperative Record and orders documented therein, exceptions below {[id number]}
--- NOTE | 2019-04-12 10:34 | GI REPORT ---
Patient Name: Dion Mcdowell Procedure Date: 04/12/2019 9:54 AM Date of : 2000 Admit Type: Inpatient Age: 19 Gender: Male Attending MD: Artis Young DO Procedure: Upper GI endoscopy Providers: Artis Young DO Referring MD: Kristian Pfeiffer DO Indications: Dysphagia Medicines: Monitored Anesthesia Care Complications: No immediate complications. Estimated Blood Loss: Estimated blood loss: none. Procedure: Pre-Anesthesia Assessment: - Prior to the procedure, a History and Physical was performed, and patient medications and allergies were reviewed. The patient's tolerance of previous anesthesia was also reviewed. The risks and benefits of the procedure and the sedation options and risks were discussed with the patient. All questions were answered, and informed consent was obtained. Prior Anticoagulants: The patient has taken no previous anticoagulant or antiplatelet agents. ASA Grade Assessment: II - A patient with mild systemic disease. After reviewing the risks and benefits, the patient was deemed in satisfactory condition to undergo the procedure. After obtaining informed consent, the endoscope was passed under direct vision. Throughout the procedure, the patient's blood pressure, pulse, and oxygen saturations were monitored continuously. The Endoscope was introduced through the mouth, and advanced to the second part of duodenum. The upper GI endoscopy was accomplished without difficulty. The patient tolerated the procedure well. Findings: The esophagus was normal. The stomach was normal. The examined duodenum was normal. Biopsies for histology were taken with a cold forceps for evaluation of celiac disease. Impression: - Normal esophagus. - Normal stomach. - Normal examined duodenum. Biopsied. Recommendation: - Return patient to [facility] for [facility] care. - Continue present medications. - Await pathology results. Artis Young DO 04/12/2019 10:34:02 AM This report has been signed electronically. Note Initiated On: 04/12/2019 9:54 AM Number of Addenda: 0 I attest to the content of the Intraoperative Record and orders documented therein, exceptions below {[id number]}
--- NOTE | 2019-04-12 11:06 | Anesthesiology Progress Note ---
Date of Service April 12, 2019 Anesthesia Post Procedure Vital Signs Vital Signs: Temp Pulse Resp BP BP Pulse Ox 04/12/19 11:04 84 18 117/69 98 04/12/19 10:49 90 18 112/68 98 04/12/19 10:34 90 16 99/52 L 97 04/12/19 09:44 36.6 C 87 16 133/79 100 04/12/19 07:13 36.5 C 81 16 108/66 98 04/11/19 23:37 37.1 C 83 16 105/63 97 04/11/19 19:35 36.4 C L 72 16 109/63 99 04/11/19 15:36 36.9 C 74 16 117/60 100 Pain Intensity Abdomen: Pain Intensity: 0 Transfer of Care Handoff Completed per policy Notes Mental Status: alert / awake / arousable and participated in evaluation Nausea / Vomiting: adequately controlled Pain: adequately controlled Airway Patency, RR, SpO2: stable & adequate BP & HR: stable & adequate Hydration State: stable & adequate Anesthetic Complications: no major complications apparent and Pt Satisfied with anesthetic care
--- NOTE | 2019-04-12 13:16 | Discharge Summary ---
Date of Service April 12, 2019 Admission HPI Per Admitting Provider Dion is a 18 year old male with hx of congential megacolon s/p partial colon resection presenting to the emergency room with abnormal labs. He was seen by his PCP yesterday for abdominal pain which has since resolved. Labs done by his PCP show a new anemia with a hemoglobin of 8.1. Denies dizziness, chest pain. Did take up cigarette smoking 2 weeks ago and notes that this has made him dyspneic with exertion. As a child, he was followed by providers at [facility] in [place] for his megacolon. He has had a resection of part of the large intestine because "it wasn't working". However, grandmother reports that there are still sections of the colon that they were told do not work well that were not able to be resected because it would make the surgery too risky. He has not followed with a GI provider recently. He was referred to Dr. Young as an outpatient, but actually has not yet established with him. He does admit to some intermittent, chronic abdominal pain. Reports that he will pain about once per week, but once he is able to get the stool out, his abdominal pain improves. He reports that his stool is chronically liquidy and he does leak stool. Stool is usually brown liquid. Denies any dark or tarry looking stools. Denies nausea or vomiting. More recently, he has been complaining of difficulty swallowing food. He reports that he feels that the food get stuck in his throat. This is mostly with food that is dry, like bread, or too large. Denies dysphagia with liquids. 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 ED course: KUB showing persistent marked increased fecal load throughout the colon, persistent and ?progressive distention of the transverse colon (16cm in diameter at the max dilation). hemoglobin 8.1 with MCV 62.8 FOBT in the ED was negative (per grandmother, patient declined rectal exam) Electrolytes are within normal range. Admission Exam Per Admitting Provider Constitutional: + thin; no acute distress and not ill appearing Eyes: PERRL, conjunctivae normal, anicteric sclerae ENMT: external ear and nose normal, oropharynx normal Neck: normal visual inspection Respiratory: normal respiratory effort, lungs clear to auscultation Cardiovascular: Rate/Rhythm: regular rhythm and + tachycardic Heart Sounds: normal S1 and normal S2; no gallop, no murmur and no cardiac rub Gastrointestinal (Abdomen): Inspection/Auscultation: normal bowel sounds Decreased bowel sounds. Firm but nontender across the upper abdomen. Lower abdomen is soft. No rebound or guarding with exam. Rectal exam deferred. Skin: no rashes, warm and dry Neurologic: moves all extremities; no focal motor deficits Motor/Sensory: no tremor Psychiatric: A+Ox3, euthymic affect Principal Diagnosis iron deficiency anemia Discharge Exam Constitutional well developed, + thin and cooperative; no acute distress Eyes + anicteric sclerae Respiratory Auscultation: lungs clear to auscultation bilaterally Cardiovascular RRR, no murmur, no edema Heart Sounds: normal S1 and normal S2; no murmur Gastrointestinal (Abdomen) Inspection/Auscultation: + abdominal surgical scar and + hypoactive bowel sounds; abdomen not distended Percussion/Palpation: abdomen soft; abdomen nontender, no guarding and no hepatosplenomegaly Neurologic awake Psychiatric A+Ox3, euthymic affect Discharge Data Allergies Allergy/AdvReac Type Severity Reaction Status Date / Time No Known Allergies Allergy NONE Unverified 04/10/19 15:01 Consultations 04/10/19 15:03 ED Decision to Admit Stat 04/10/19 18:07 Consult Gastroenterology Routine Procedures Performed Operation Date: 04/12/19 08:15 Actual Procedures p EGD Biopsy Cytology - Artis Chan Case, DO s Colonoscopy - Artis Chan Case, DO Hospital Course (1) Microcytic anemia: Dion is a 18 year old male with hx of congenital megacolon s/p partial colon resection admitted to [facility] from 04/10/19-04/12/19 for iron deficiency anemia. 1. Microcytic anemia, secondary to iron deficiency - hemoglobin 8.1 on admission (04/10), MCV 62.8; Hgb 7.4 on discharge (04/12) - Fe level low at 13, TIBC normal at 280, Ferritin low at 3.8 (04/11) -ordered IV iron 300mg yesterday (04/11); will get subsequent IV infusion as outpatient with heme/onc -ordered ferrous sulfate, 325mg, 1 tab, PO to be taken daily -he had no symptoms of GI bleed and FOBT was negative -GI was consulted and attempted a colonoscopy, but patient was unable to tolerate golyte prep and thus the procedure was unable to be performed -patient has outpatient follow up visit with Luz JORDAN (Dr. Young) in one week 2. congenital megacolon - s/p partial colon resection 3. Loose stool and stool leakage - may be secondary to impacted stool or more likely limited function of his remaining large intestine to absorb fluid - c. diff testing: gene positive toxin negative, no treatment initiated -stool studies showing no growth of shigella, salmonella and campylobacter (preliminary read) 4. dysphagia - Upper endoscopy today was normal, per GI - continue home dose oral PPI 5. hypoalbuminemia - secondary to either protein malnutrition (intake vs absorption) vs chronic il lness 5. ADHD - continue home Vyvanse 60mg (2) ADHD: (3) Hypoalbuminemia: (4) Megacolon: Total Time Total Time Spent Total Time Spent (In Minutes): greater than 32 min Discharge Plan Discharge Items Patient Disposition: Home - Self-Care Reason For Visit: ANEMIA,MEGACOLON Discharge Diagnosis: Iron deficiency anemia Discharge Goals: Learn about illness Activity: Resume your previous activity Activity Comment: as tolerated Non-emergency contact: Primary Care Provider Call non-emergency contact if: you have any medication questions Follow-up/Referrals: Artis Young DO [Physician] - Anila Cordova CRNP [Primary Care Provider] - 04/18/19 2:30 pm (Please, follow up with Anila CARLSON on TuesdayApril 18 at 2:30 pm. *If you need to change this appointment, call the office at [phone].) Óscar Benson [Physician] - (Please, follow up with Dr. Benson or Dr. Aleman (hematology) regarding your anemia. *A nurse from this office will call you to arrange an appointment. Their office is located in the rear of this hospital building. You will park behind the hospital in [address] and enter via [facility]. If you have any questions, call the office at [phone].) Diet: Regular Addtl Provider Instructions: You were admitted to [facility] 04/10/19-04/12/19 for evaluation and treatment of your iron deficiency anemia. You received a supplement of iron through an IV line during your stay. You were also provided with a script for an oral iron supplement on the day of your discharge. You should take 1 tablet of the iron supplement (325mg) per day. Gastroenterology was consulted and preformed an upper endoscopy, which was normal. They attempted a lower endoscopy, or a "colonoscopy" but were unable to visualize the inside of the colon because it was congested with stool. You should schedule an outpatient visit with the chaplaincy, Dr. Young, in one week. You should schedule an outpatient visit with hematology who will arrange your next infusion of iron. Prescriptions: New ferrous sulfate [iron] 325 mg (65 mg iron) tablet 325 mg PO DAILY Qty: 30 RF: 3 Continued Vyvanse 60 mg Capsule 60 mg PO DAILY Qty: 0 RF: 0 ranitidine HCl [Zantac] 150 mg tablet 150 mg PO DAILY Qty: 30 RF: 2 omeprazole 20 mg capsule,delayed release(DR/EC) 20 mg PO DAILY Qty: 30 RF: 2 Stand-Alone Forms: [facility], Work/School Release (Inpt) Krames/Other Patient Handouts: Anemia Iron Deficiency Ch, ED Anemia Iron Deficiency Discharge Orders: Discharge Order (Routine); Ordered 04/12/19 Ordered By: Milvia Jeffries Admission Data Admit Date/Time: 04/10/19 16:22 Attending Provider: Kristian Pfeiffer Admit Provider: Kristian Pfeiffer Primary Care Provider: Anila Cordova Other Providers: Maine Ingram ; Artis Young Service: Medical Other Interventions: Discharge Summary Assessment (RN) Last Done: 04/12/19 14:45 Pending Studies at Discharge: No DC Date/Time DO NOT enter until pt leaves facility: 04/12/19 15:20 Supervising Physician Co-Signing Physician Notes Patient seen and examined with Flash Jeffries and Luisana. Agree with history, exam findings, assessment and plan of care as outlined. Dion is a 18 year old male with hx of congenital megacolon s/p partial colon resection presenting to the emergency room with abnormal labs. Doing well today. EGD unremarkable. Unable to do colonscopy due to ineffective prep. 1. Microcytic anemia/iron deficiency anemia - hemoglobin 7.4, MCV 62.8. iron 13, TIBC, 280, ferritin 3.8. - IV iron yesterday - will follow up with heme onc as an outpatient for additional work up and iron infusions. 2. congenital megacolon - s/p partial colon resection - GI consulted, appreciate assistance. 3. Loose stool and stool leakage - may be secondary to impacted stool or more likely limited function of his remaining large intestine to absorb fluid - c. diff gene pos, toxin neg. Other stool studies ordered by ED provider pending 4. dysphagia - Continue oral PPI 5. hypoalbuminemia - secondary to either protein malnutrition (intake vs absorption) vs chronic illness 5. ADHD - continue home Vyvanse 60mg Dispo: discharge today I personally spent 32 minutes discharge planning/coordination of care for this patient. Resident Activity Tracking Resident Involvement: Resident Care Provided Care Provided: Adult Hospital Medicine
== END 2019-04-12 15:20 | disposition home or self-care (01) | DRG 812 ==
LOC: ED 12:56 → 3W 16:22

== ENCOUNTER 2022-03-22 16:20 | Inpatient (IN) ==
[2022-03-22] MEDS ORDERED: diphenhydrAMINE 50 MG/ML VIAL IV STA (19:33)
[2022-03-22] MEDS ORDERED: SODIUM CHLORIDE 0.9% 1000ML 1,000 ML IV ONE (19:33)
[2022-03-22] MEDS ORDERED: PROCHLORPERAZINE 5 MG in SYRINGE 8 ML IV ONE (19:33)
[2022-03-22 19:39] LABS: Albumin Globulin Ratio 1.3 (0.9-2); Bilirubin,Total 0.2 mg/dl (0.2-1.0); Calcium 7.9 mg/dl (8.5-10.1); Creatinine Clr Calc Pharmacy 86.6 ml/min; Est GFR (African American) 107.5 ml/min; Est GFR (Non-African American) 92.7 ml/min; Globulin 2.4 gm/dl (2.5-4.0); Total Protein 5.4 gm/dl (6.0-8.3)
--- NOTE | 2022-03-22 19:44 | Emergency Department Note ---
Impression & Plan Dizziness, GI bleed, Anemia, Headache ED Provider Note NAME: LUIZA PATTON AGE: 21 SEX: M : 2000 ARRIVES VIA: Walk-In INFORMANT: [Patient] ED PROVIDER(S): [Bj Sawant MD] CHIEF COMPLAINT: Headache, dizziness HISTORY OF PRESENT ILLNESS: The patient is a 21-year-old male who presents to the ER with 2 weeks of headaches and dizziness. He only feels relief of his headache at nighttime. He gets up in the morning, as the day goes on, the headache comes on. He has noticed dizziness with change of position. Yesterday he vomited 1 time. The headaches have been fairly severe. No cough or cold or chest pain, no shortness of breath. No urinary complaints, no diarrhea. No abdominal pain. No one-sided weakness. No recent head trauma. The patient has missed work a few times because of his complaints. He states he does have a history of anemia and migraines. He has not seen a neurologist. He has tried Tylenol without pain relief. REVIEW OF SYSTEMS: See HPI for pertinent positives and negatives. A total of ten systems were reviewed and were otherwise negative. PMHx/PSHx: See Below SOCIAL HISTORY: See Below. PHYSICAL EXAM: GENERAL: Patient is in no acute distress. HEENT: No acute trauma, normocephalic atraumatic, mucous membranes moist, no nasal congestion, no scleral icterus. NECK: No stridor, no adenopathy, no meningismus, trachea is midline. LUNGS: Clear to auscultation bilaterally, no wheeze, no rhonchi, breath sounds equal. HEART: Subtle systolic murmur, regular rate and rhythm. ABDOMEN: Soft, nontender, bowel sounds positive, no peritonitis. EXTREMITIES: No cyanosis or edema, full range of motion of all the joints without pain or difficulty, no signs for acute trauma. NEUROLOGIC: Oriented x 3, no acute motor or sensory deficits, no focal weakness. No cerebellar deficits. SKIN: No rash, no jaundice, no diaphoresis. Pale. Rectal: Very dark brown stool, heme positive DIFFERENTIAL DIAGNOSIS: Migraine headache, intracranial bleeding, dehydration, electrolyte imbalance, anemia, GI bleeding, renal or liver failure, dysrhythmia, meningitis, infection, among others EMERGENCY DEPARTMENT COURSE/PROCEDURES: MEDICAL DECISION MAKING: There is no leukocytosis. The patient is anemic with a hemoglobin of 7.9. This is lower than he typically runs. Platelet count was slightly elevated. No concerning electrolyte abnormality. No renal failure. Alk phos was somewhat elevated, remaining liver enzymes were unremarkable. Patient appeared to be in a euthyroid state. COVID test returned negative. Brain CT showed no acute bleed or mass-effect. Abdominal and pelvis CT showed findings consistent with his history of megacolon, no mass, no bowel obstruction. Rectal exam was performed, the stool was dark brown and heme positive. Patient received IV saline 1 L. He was given IV Compazine, IV Protonix, IV Benadryl and IV Tylenol. He was initially written to receive IV Toradol but this was canceled when the GI bleeding was discovered. I talked to the patient about a hospital stay. He was agreeable. He will need to be seen by GI. I am concerned for ulcer or even some form of lower intestinal bleeding. I think the anemia explains his dizziness and may even be contributing to his headache. I did speak with the patient's grandmother who arrived in the ED. I spoke with case management, the on-call hospitalist was consulted. Of note, the patient did sign consent for a blood transfusion, the blood was not given while here in the ED as his hemoglobin was over 7. Past Med/Surg History Medical History ADHD Anemia Colon ulcer Constipation Generalized intestinal dysmotility Neck mass Surgical History H/O colonoscopy History of colon resection d/t constipation 2016 @ [facility] History of esophagogastroduodenoscopy (EGD) Status post cecostomy Family History Family/Other No problems noted. Other No family history of adverse response to anesthesia Social History Smoking Status: Current some day smoker Tobacco Type: Cigarettes Cigarettes Per Day: 1 a day; Second Hand Exposure: Yes (mom smoked); Hx Alcohol Use: No Hx Substance Use: No Preferred Language: Georgian Communication Ability: Effective X Ray Equipment Mechanic Required: No Beliefs That Will Affect Care: None Current Living Situation: Family Current Living Situation Comment: Lives with gram Feels Safe at Home: Yes Dental Care, Regularly: No Assistive Devices: None Allergies Allergies Allergy/AdvReac Type Severity Reaction Status Date / Time No Known Allergies Allergy Verified 03/22/22 22:14 Home Meds Home Medications Medication Instructions Recorded Confirmed acetaminophen 500 mg tablet 1,000 mg PO DAILY PRN 03/22/22 03/22/22 polyethylene glycol 3350 17 gram 17 g PO DAILY 03/22/22 03/22/22 oral powder packet (Miralax) Results & Data (ED) Vital Signs Vital Signs - 24 hr 03/22/22 16:55 03/22/22 20:34 03/22/22 20:40 Temperature 37.4 C Temperature Source Temporal Artery Scan Pulse Rate 77 96 H 86 Respiratory Rate 20 21 22 Respiratory Effort / Characteristics Non-Labored Respiratory Depth Normal Blood Pressure 126/63 131/86 Blood Pressure Mean 84 101 Pulse Oximetry 98 100 100 Oxygen Delivery Method Room Air Room Air Room Air Sepsis Recent Fever Within 48 Hours No Sepsis New/Unexplained Change in Mental Status N/A Sepsis Action Taken by Nursing No Action Required 03/22/22 20:50 Temperature Temperature Source Pulse Rate 76 Respiratory Rate 22 Respiratory Effort / Characteristics Respiratory Depth Blood Pressure Blood Pressure Mean Pulse Oximetry 99 Oxygen Delivery Method Room Air Sepsis Recent Fever Within 48 Hours Sepsis New/Unexplained Change in Mental Status Sepsis Action Taken by [facility] Medications Current Medication List: was personally reviewed by me Laboratory Data Attestation: I reviewed the patient's lab results. Result diagrams: 03/22/22 19:02 03/22/22 19:02 Lab Results 03/22/22 03/22/22 03/22/22 Range/Units 19:02 19:02 19:02 WBC 7.37 (4.8-10.8) K/uL RBC 4.13 L (4.7-6.1) M/uL Hgb 7.9 L (14.0-18.0) g/dL Hct 27.5 L (42-52) % MCV 66.6 L (80-100) fL MCH 19.1 L (25-34) pg MCHC 28.7 L (32-36) g/dL RDW Std Deviation 42.7 (36.4-46.3) fL RDW Coeff of Paul 17.5 H (11.5-14.5) % Plt Count 476 H (130-400) K/uL MPV 9.3 (7.4-10.4) fL Immature Gran % (Auto) 0.0 % Neut % (Auto) 49.1 % Lymph % (Auto) 32.0 % Irion % (Auto) 14.8 % Eos % (Auto) 3.7 % Baso % (Auto) 0.4 % Neut # (Auto) 3.62 (1.4-6.5) K/uL Lymph # (Auto) 2.36 (1.2-3.4) K/uL Irion # (Auto) 1.09 H (0.11-0.59) K/uL Eos # (Auto) 0.27 (0-0.5) K/uL Baso # (Auto) 0.03 (0-0.2) K/uL Immature Gran # (Auto) 0.00 (0.00-0.02) K/uL Polychromasia 1+ Hypochromasia Present Microcytosis Present Sodium 137 (136-145) mmol/L Potassium 4.0 (3.5-5.1) mmol/L Chloride 108 H (98-107) mmol/L Carbon Dioxide 24 (21-32) mmol/L Anion Gap 5 (3-11) BUN 28 H (6-23) mg/dl Creatinine 1.12 (0.6-1.4) mg/dl Est Cr Clr Drug Dosing 86.6 ml/min Est GFR ( Amer) 107.5 ml/min Est GFR (Non-Af Amer) 92.7 ml/min BUN/Creatinine Ratio 25.0 H (10-20) Glucose 117 H (70-99(Fasting)) mg/dl Calcium 7.9 L (8.5-10.1) mg/dl Magnesium 2.5 H (1.7-2.4) mg/dl Total Bilirubin 0.2 (0.2-1.0) mg/dl AST 23 (13-39) U/L ALT 9 (7-52) U/L Alkaline Phosphatase 114 H (34-104) U/L Total Protein 5.4 L (6.0-8.3) gm/dl Albumin 3.0 L (3.4-5.0) gm/dl Globulin 2.4 L (2.5-4.0) gm/dl Albumin/Globulin Ratio 1.3 (0.9-2) TSH (0.300-4.500) uIu/ml SARS-CoV-2, RNA, NAAT (NEGATIVE) Blood Type Antibody Screen Crossmatch 03/22/22 03/22/22 03/22/22 Range/Units 19:02 20:38 Unknown WBC (4.8-10.8) K/uL RBC (4.7-6.1) M/uL Hgb (14.0-18.0) g/dL Hct (42-52) % MCV (80-100) fL MCH (25-34) pg MCHC (32-36) g/dL RDW Std Deviation (36.4-46.3) fL RDW Coeff of Paul (11.5-14.5) % Plt Count (130-400) K/uL MPV (7.4-10.4) fL Immature Gran % (Auto) % Neut % (Auto) % Lymph % (Auto) % Irion % (Auto) % Eos % (Auto) % Baso % (Auto) % Neut # (Auto) (1.4-6.5) K/uL Lymph # (Auto) (1.2-3.4) K/uL Irion # (Auto) (0.11-0.59) K/uL Eos # (Auto) (0-0.5) K/uL Baso # (Auto) (0-0.2) K/uL Immature Gran # (Auto) (0.00-0.02) K/uL Polychromasia Hypochromasia Microcytosis Sodium (136-145) mmol/L Potassium (3.5-5.1) mmol/L Chloride (98-107) mmol/L Carbon Dioxide (21-32) mmol/L Anion Gap (3-11) BUN (6-23) mg/dl Creatinine (0.6-1.4) mg/dl Est Cr Clr Drug Dosing ml/min Est GFR ( Amer) ml/min Est GFR (Non-Af Amer) ml/min BUN/Creatinine Ratio (10-20) Glucose (70-99(Fasting)) mg/dl Calcium (8.5-10.1) mg/dl Magnesium (1.7-2.4) mg/dl Total Bilirubin (0.2-1.0) mg/dl AST (13-39) U/L ALT (7-52) U/L Alkaline Phosphatase (34-104) U/L Total Protein (6.0-8.3) gm/dl Albumin (3.4-5.0) gm/dl Globulin (2.5-4.0) gm/dl Albumin/Globulin Ratio (0.9-2) TSH 0.875 (0.300-4.500) uIu/ml SARS-CoV-2, RNA, NAAT NEGATIVE (NEGATIVE) Blood Type O Positive Antibody Screen NEGATIVE Crossmatch See Detail Administered Medications Discontinued Medications Acetaminophen (Acetaminophen 1000 Mg/100 Ml Iv) 1,000 mg IV NOW STA Stop: 03/22/22 20:07 Last Admin: 03/22/22 20:21 Dose: 1,000 mg Documented by: [id number] Diphenhydramine HCl (Diphenhydramine 50 Mg/Ml Vial) 25 mg IV NOW STA Stop: 03/22/22 19:34 Last Admin: 03/22/22 20:18 Dose: 25 mg Documented by: [id number] Sodium Chloride (Nss 1000ml) 1,000 mls @ 999 mls/hr IV .Q1H1M ONE Stop: 03/22/22 20:33 Last Infusion: 03/22/22 21:41 Dose: 0 mls/hr Documented by: [id number] Admin: 03/22/22 20:20 Dose: 999 mls/hr Documented by: [id number] Pantoprazole Sodium 80 mg/ (Dextrose) 100 mls @ 400 mls/hr IV ONE STA Stop: 03/22/22 20:20 Last Infusion: 03/22/22 21:02 Dose: 0 mls/hr Documented by: [id number] Admin: 03/22/22 20:41 Dose: 400 mls/hr Documented by: [id number] Prochlorperazine 5 mg/ Syringe 5 mls @ 5 mls/min IV ONE ONE Stop: 03/22/22 20:31 Last Admin: 03/22/22 20:40 Dose: 5 mls/min Documented by: [id number] Ioversol (Optiray 320 100ml) 94 ml IV ONCE ONE Stop: 03/22/22 21:16 Last Admin: 03/22/22 21:15 Dose: 94 ml Documented by: [id number] Ketorolac Tromethamine (Ketorolac Tromethamine 15 Mg/Ml Vial) 15 mg IV NOW STA Stop: 03/22/22 19:34 Last Admin: 03/22/22 20:42 Dose: 15 mg Documented by: [id number] Imaging Data Radiologist's Impression: Brain CT: No acute intracranial process, mild mucosal thickening of the paranasal sinuses. Abdominal and pelvis CT with contrast: Stool-filled colon with colonic distention. The amount of distention is decreased from the last exam. Possible stercoral colitis. Normal appendix, no bowel obstruction. No free air. No ascites. Discharge Plan Visit Data Chief Complaint: Dizziness Stated Complaint: DIZZINESS, HEADACHE, VOMITING ED Provider: Bj Sawant Discharge Problem: Dizziness, GI bleed, Anemia, Headache Patient Disposition: Admitted As Inpatient Condition: Fair Forms Stand Alone Forms: [facility] Prescriptions Prescriptions: No Action polyethylene glycol 3350 [Miralax] 17 gram Powder In Packet 17 g PO DAILY RF: 0 acetaminophen [Tylenol Ex Str Rapid Release] 500 mg Tablet 1,000 mg PO DAILY PRN (Reason: Pain) RF: 0 Referrals Referrals: Anila Willis CRNP [Primary Care Provider] -
[2022-03-22 19:49] LABS: Hematocrit (blood only) 27.5 % (42-52); Hemoglobin 7.9 g/dL (14.0-18.0); Mean Corpuscular Hemoglobin 19.1 pg (25-34); Mean Corpuscular Hgb Conc 28.7 g/dL (32-36); Mean Corpuscular Volume 66.6 fL (80-100); Mean Platelet Volume 9.3 fL (7.4-10.4); Platelet Count 476 K/uL (130-400); RDW Coefficient of Variation 17.5 % (11.5-14.5); RDW Standard Deviation 42.7 fL (36.4-46.3); Red Blood Count 4.13 M/uL (4.7-6.1); White Blood Count 7.37 K/uL (4.8-10.8)
[2022-03-22 19:53] LABS: Basophils # (auto) 0.03 K/uL (0-0.2); Basophils % (auto) 0.4 %; Eosinophils # (auto) 0.27 K/uL (0-0.5); Eosinophils % (auto) 3.7 %; Hypochromasia Present; Lymphocytes # (auto) 2.36 K/uL (1.2-3.4); Microcytosis Present; Monocytes # (auto) 1.09 K/uL (0.11-0.59); Monocytes % (auto) 14.8 %; Neutrophils # (auto) 3.62 K/uL (1.4-6.5); Neutrophils % (auto) 49.1 %; Polychromasia 1+
[2022-03-22] MEDS ORDERED: SODIUM CHLORIDE 0.9% 250 ML IV PRN (20:06)
[2022-03-22] MEDS ORDERED: ACETAMINOPHEN 1000 MG/100 ML IV IV STA (20:06)
[2022-03-22] MEDS ORDERED: PANTOprazole 80 MG in DEXTROSE 5% 100 ML IV STA (20:06)
[2022-03-22] MEDS ORDERED: PROCHLORPERAZINE 5 MG in SYRINGE 4 ML IV ONE (20:30)
[2022-03-22] MEDS: KETOROLAC TROMETHAMINE 15 MG/ML VIAL IV STA ×2 (20:42→23:14)
[2022-03-22] MEDS ORDERED: OPTIRAY 320 100ml IV ONE (21:15)
--- NOTE | 2022-03-22 21:37 | History & Physical Report ---
Date of Service March 22, 2022 Assessment & Plan (1) Generalized intestinal dysmotility: Plan: Dion Mcdowell is a 21yo male with PMHx significant for longstanding constipation (with encopresis since age 4) with associated colonic dysmotility (s/p partial sigmoidectomy in 2017), iron deficiency anemia requiring IV iron infusions in the past (baseline Hgb ranges mostly from 8-10), chronic headaches, ADHD, and ODD who presented to [facility] on 03/22 for worsening headaches and lightheadedness for several weeks. Chronic Constipation, with associated colonic dysmotility; Stercoral Colitis Chronic problem not adequately treated with daily Miralax. Patient has 2-3 small liquid stools per day which likely represent overflow diarrhea. CT A/P showing marked colonic distension with significant retained stool - left colon measured 11cm at widest (slightly improved from 06/2021 CT scan). With evidence of distal rectosigmoid colonic wall thickening which may represent stercoral colitis (due to chronic constipation). - give Miralax 68g x1 now (4 caps) - will avoid further intervention tonight due to suspected stercoral colitis and risk for ulceration/perforation - GI consulted - appreciate recs - PRN Tylenol for pain Acute on Chronic Iron-Deficiency Anemia; GI bleed Hgb 7.8, hypochromic and microcytic, with previously established diagnosis of iron deficiency anemia. Patient has not seen Hematology for ~3 years and has not had iron infusions for same amount of time - suspect worsening iron deficiency as cause of anemia and associated lightheadedness and headaches. - will give iron sucrose 300mg IV x1 now (was last given this med and dose in 2019 and handled it well without adverse side effects) - retic count pending (if low, would consider Epoeitin alpha) - consider Heme/Onc consultation (inpatient vs outpatient), as patient was previously followed by our cancer center and was lost to follow up - CBC, iron studies and ferritin ordered for tomorrow AM - patient was type/crossed and pRBCs placed on hold - transfuse for Hgb <7 GI Bleed Heme occult positive in the ED, albeit without melena/hematochezia/diarrhea. May be contributing to anemia and lightheadedness. - fecal occult all stools - trend H/H at midnight and CBC tomorrow AM - s/p Protonix 80mg IV x1 (loading dose); will continue with 40mg IV BID starting tomorrow AM to cover for possible upper GI bleed - GI consulted as stated above - NPO for now pending GI eval tomorrow - s/p 1L NSS bolus; continue with LR @80cc/hr while NPO Chronic Headaches Becoming more frequent and severe as of late - likely due to worsening anemia. Improved with Tylenol. - s/p migraine cocktail, unfortunately which included Toradol, in the ED - with improvement in pain - continue with PRN Tylenol for pain - avoid NSAIDs in context of GI bleed Hypoalbuminemia; Malnutrition Albumin 3.0. In context of severe chronic constipation and VIC, concerning for chronic malnutrition. - ordered Prealbumin - consider chicken hatchery helper consult at later time FEN/GI: NPO, LR @80cc/hr DVT Prophylaxis: chemoppx contraindicated due to GI bleed Code Status: full code Disposition: med/surg (2) Stercoral colitis: (3) Chronic constipation: (4) GI bleed: (5) Iron deficiency anemia: (6) Chronic headaches: (7) Hypoalbuminemia: History of Present Illness Chief Complaint: dizziness Primary Care Provider: ALDO Holland Dion Mcdowell is a 21yo male with PMHx significant for longstanding constipation (with encopresis since age 4) with associated colonic dysmotility (s/p partial sigmoidectomy in 2017), iron deficiency anemia requiring IV iron infusions in the past (baseline Hgb ranges mostly from 8-10), chronic headaches, ADHD, and ODD who presented to [facility] ED on 03/22 for worsening headaches and lightheadedness for several weeks. Patient reports that he was "lost to follow up" with [facility] as well as Hematology via our cancer center and has not seen them for constipation or for VIC for several years. He is taking Miralax 17g BID scheduled but has not taken PO or IV iron formulations for several years. Over the last several months he has noticed progressively decreased energy, worsening fatigue, and more frequent headaches. In the past he has intermittently been non-compliant with iron treatments and has become more anemic, and he reports that his headaches get worse along with his anemia. Patient denies hematochezia, melena, or abnormal stools. He usually has 2-3 small, watery stools per day. Has not had a formed stool for "a while". Denies hemorrhoids or pain with BMs. Patient has taken Tylenol 1000-1500mg PO Q6H every day (total 4-6g per day) over last several weeks for worsening headaches which has helped. Denies associated photosensitivity/photosensitivity, N/V, or focal weakness/numbness. Did vomit once yesterday when he was feeling lightheaded but denies associated headache at that time. Denies smoking or drug use. Reports only occasional alcohol use several times per month. He lives with his girlfriend for the last month, and they work together in [employer]. In the ED the patient was hemodynamically stable on room air. Hgb 7.9 (just below baseline) with MCV 66.6 and MCHC 28.7. FOBT was positive. Ca 7.9 (corrected 8.7). CT A/P showed marked colonic distension with significant retained stool - left colon measured 11cm at widest (slightly improved from 06/2021 CT scan). With evidence of distal rectosigmoid colonic wall thickening which may represent stercoral colitis. CT head showed mild mucosal thickening of paranasal sinuses but no acute intracranial process. Patient was given Compazine/Toradol/Tylenol/Benadryl for headache which led to significant improvement. Was given 1L NSS bolus. Was also given Protonix 80mg IV loading dose for possible upper GI bleed. Allergies Allergy/AdvReac Type Severity Reaction Status Date / Time No Known Allergies Allergy Verified 03/22/22 22:14 Home Medications Medication Instructions Recorded Confirmed Type acetaminophen 500 mg tablet 1,000 mg PO DAILY PRN 03/22/22 03/22/22 History polyethylene glycol 3350 17 gram 17 g PO DAILY 03/22/22 03/22/22 History oral powder packet (Miralax) Past Med/Surg History Medical History ADHD Anemia Colon ulcer Constipation Generalized intestinal dysmotility Neck mass Surgical History H/O colonoscopy History of colon resection d/t constipation 2016 @ [facility] History of esophagogastroduodenoscopy (EGD) Status post cecostomy Family History Family/Other No problems noted. Other No family history of adverse response to anesthesia Social History Smoking Status: Current some day smoker Tobacco Type: Cigarettes Cigarettes Per Day: 5; Second Hand Exposure: No; Do You Dip or Chew Tobacco: No; Tobacco Cessation Education Requested by Patient: No Hx Alcohol Use: Yes Alcohol type: wine and other Hx Substance Use: No Preferred Language: Luxembourger Communication Ability: Effective Welt Cutter Required: No Beliefs That Will Affect Care: None Current Living Situation: Significant Other Current Living Situation Comment: Lives with Fiance. Other Information That Helps Us Care for You: No Feels Safe at Home: Yes Safety Concerns: Feels Safe At This Time Dental Care, Regularly: No Assistive Devices: None Review of Systems Review of Systems: All systems reviewed & are unremarkable except as noted in HPI & below Physical Exam Physical Exam: General: A&Ox3. NAD. Cooperative. HEENT: Atraumatic, normocephalic. Pulm: CTAB A&P. -wheezes, -rales, -rhonchi. Symmetrical chest rise. No increase work of breathing. No respiratory distress. Cardiac: RRR, -mrg. Radial pulses intact and symmetrical. No LE edema. Abdominal: soft, non-tender, distended particularly on the left and throughout lower abdomen, NA BS x 4 Skin: pale, no jaundice. warm, dry, no rash. Results & Data Results & Data ([facility]) Vital Signs (Past 12 Hours) Vital Signs Temp Pulse Resp BP Pulse Ox 03/22/22 20:50 76 22 99 03/22/22 20:40 86 22 100 03/22/22 20:34 96 H 21 131/86 100 03/22/22 16:55 37.4 C 77 20 126/63 98 Supervising Physician Co-Signing Physician Notes Attending addendum: I have physically seen this patient, have supervised the medical residents activities, and agree with the H&P unless as otherwise noted. Assessment and Plan: Chronic constipation/colonic dysmotility/stercoral colitis/GI bleed- MiraLAX as noted Consult gastroenterology to deal with chronic issues Iron deficiency anemia- Multifactorial Oral iron is not a good option IV iron as noted, check reticulocyte count, and if low, will add erythropoietin as well Should be considered for routine iron infusions as an outpatient Type and screen, transfuse only if hemoglobin less than 7 or becomes symptomatic otherwise Remaining orders and notations as noted Resident Activity Tracking Resident Involvement: Resident Care Provided Care Provided: Adult Hospital Medicine
[2022-03-22 23:30] LABS: Reticulocyte % 1.7 % (0.5-2.0); Reticulocytes # 0.07 10^6/uL (0.02-0.10)
[2022-03-22] MEDS ORDERED: ACETAMINOPHEN 500 MG TAB PO PRN (23:46)
[2022-03-22] MEDS ORDERED: POLYETHYLENE (MIRALAX) 17 GM PACK PO STA (23:46)
[2022-03-22] MEDS: LACTATED RINGER'S 1,000 ML IV SCH (23:54)
[2022-03-23] MEDS ORDERED: IRON SUCROSE 300 MG in SODIUM CHLORIDE 0.9% 250 ML IV ONE ×2 (00:30→16:16)
[2022-03-23 01:18] LABS: Hematocrit (blood only) 25.9 % (42-52); Hemoglobin 7.4 g/dL (14.0-18.0)
--- NOTE | 2022-03-23 06:39 | CT Scan Report ---
CT head/brain wo con CLINICAL HISTORY: 21 years-old Male with dizzy, headache. Acute headache with dizziness TECHNIQUE: Multiple axial CT images of the head were obtained without contrast. A dose lowering tech nique was utilized adhering to the principles of ALARA. COMPARISON: None. FINDINGS: No acute intracranial hemorrhage, midline shift, intracranial mass, hydrocephalus, territorial ischem ia or abnormal extra-axial collection. Streak artifact from the patient's earrings. The calvarium is intact. The mastoid air cells are clear. Mild mucosal thickening of the paranasal s inuses. IMPRESSION: No acute intracranial abnormality. ACT 112: Negative or not required by law. The above report was generated using voice recognition software. It may contain grammatical, syntax o r spelling errors. Electronically signed by: Pratik Ambriz M.D. 03/23/2022 6:38 AM
[2022-03-23 07:53] LABS: Hematocrit (blood only) 26.9 % (42-52); Hemoglobin 7.5 g/dL (14.0-18.0); Mean Corpuscular Hemoglobin 18.5 pg (25-34); Mean Corpuscular Hgb Conc 27.9 g/dL (32-36); Mean Corpuscular Volume 66.3 fL (80-100); Mean Platelet Volume 9.5 fL (7.4-10.4); Platelet Count 393 K/uL (130-400); RDW Coefficient of Variation 17.7 % (11.5-14.5); RDW Standard Deviation 42.8 fL (36.4-46.3); Red Blood Count 4.06 M/uL (4.7-6.1); White Blood Count 5.35 K/uL (4.8-10.8)
--- NOTE | 2022-03-23 07:56 | Hospitalist Progress Note ---
Date of Service March 23, 2022 Assessment & Plan (1) Generalized intestinal dysmotility: Plan: Dion Mcdowell is a 21yo male with PMHx significant for longstanding constipation (with encopresis since age 4) with associated colonic dysmotility (s/p partial sigmoidectomy in 2016), iron deficiency anemia requiring IV iron infusions in the past (baseline Hgb ranges mostly from 8-10), chronic headaches, ADHD, and ODD who presented to [facility] ED on 03/22 for worsening headaches and lightheadedness for several weeks. 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 Past admits for constipation and anemia. Prev started on Linzess/Miralax. In 2019. Had tertiary care eval subsquently in 2019. Recommended Linzess 290mcg daily, miralax qAM, 64oz water daily, celiac screen and iron studies, and lactose free trials. At that visit reviewed hx including colonic manometry 12/2016 with propagated contractions in the proximal colon, no contractions in remainder of colon. Anorectal manometry under anesthesia 12/2016: Normal resting tone with failure of relaxation of internal sphincter. Sits marker study 10/2016: 24+ retained markers Transanal myectomy 05/2015: Biopsy consistent with nerve Hydrotropine, not consistent with Hirschsprung. 02/2017: Partial sigmoid with cecostomy tube placement Admit CT A/P: colonic distension with significant retained stool - left colon measured 11cm at widest (slightly improved from 06/2021 CT scan). With evidence of distal rectosigmoid colonic wall thickening which may represent stercoral colitis (due to chronic constipation). -Clinical evidence of overflow diarrhea Patient uses MiraLAX daily, Linzess as needed per last GI follow-up although patient notes has followed up recently Received 4 caps of MiraLAX on admission, additional intervention deferred for concern of risk of ulceration/perforation stercoral colitis GI consulted. Patient with evidence of chronic disease, stool original colon and slow GI bleed with chronic iron deficiency anemia. Last transfusion 3 years ago. Patient is feeling back to normal baseline following initial iron infusion. Recommended for follow-up at [facility] [place], consideration of possible colectomy. At present continue Linzess, MiraLAX, while inpatient continue bowel regimen. Given anemia and severely depleted ferritin, will complete 3 Venofer infusions while inpatient and then discharge as long as hemoglobin is stable/uptrending. Acute on Chronic Iron-Deficiency Anemia; GI bleed Hgb 7.8, hypochromic and microcytic, with previously established diagnosis of iron deficiency anemia. Patient has not seen Hematology for ~3 years and has not had iron infusions for same amount of time - suspect worsening iron deficiency as cause of anemia and associated lightheadedness and headaches. - will give iron sucrose 300mg IV x1 now (was last given this med and dose in 2019 and handled it well without adverse side effects) - retic count pending. No history of ESRD/Renal disease - Iron studies and ferritin unreliable as Venofer given prior to lab draw. Ferritin is profoundly low, even as a phase reactant in the setting of chronic colonic disease. - Ferritin is extremely low consistent with iron deficiency - Can also have nutritional def affecting xferrin - B12/Folate pending -Transfuse for Hgb <7 - Retic # 0.07, % 1.7 - Retic Index 0.73, Hypoproliferative GI Bleed Heme occult positive in the ED, no melena/hematochezia/diarrhea. - fecal occult all stools - Trend CBC. - Hgb 7.5 from 7.4 03/23 AM. prior baseline ~9-10g/dl. - s/p Protonix 80mg IV x1 (loading dose); continue PPI BID - GI consulted as noted Chronic, resume diet and bowel regimen. Treat iron deficiency anemia as above. Will require follow-up at [facility] as noted. Chronic Headaches Similar to prior, have previously resolved with iron infusions 03/23 resolved following Venofer - s/p migraine cocktail, unfortunately which included Toradol, in the ED - with improvement in pain - continue with PRN Tylenol for pain - avoid NSAIDs in context of GI bleed Hypoalbuminemia; Malnutrition Albumin 3.0. In context of severe chronic constipation and VIC, concerning for chronic malnutrition. - Prealbumin 11.4 B12 pending, folate pending FEN/GI: Diet resumed IV FM discontinued DVT Prophylaxis: chemoppx contraindicated due to GI bleed Code Status: full code Disposition: med/surg (2) Stercoral colitis: (3) Chronic constipation: (4) GI bleed: (5) Iron deficiency anemia: (6) Chronic headaches: (7) Hypoalbuminemia: Admission and Anticipated Discharge Date Admission Date: March 22, 2022 Subjective Patient seen at the bedside this morning. He reports he has had 3 small bowel movements since last night, loose but not completely liquid. Denies lightheadedness, dizziness, chest pain, chest pressure, shortness of breath. Abdomen soft. He reports he takes Linzess at home as needed and MiraLAX daily per his last GI follow-up, although notes this has been a while. Does endorse continued fatigue, and mild headache. Reports headaches have occurred with anemia in the past. On afternoon reassessment, patient orts he feels much better and much more similar to his normal. Headache has improved. Review of Systems Review of Systems: All systems reviewed & are unremarkable except as noted in Subjective Physical Exam Physical Exam: General: A&Ox3. NAD. Cooperative. HEENT: Atraumatic, normocephalic. Pulm: CTAB A&P. -wheezes, -rales, -rhonchi. Symmetrical chest rise. No increase in work of breathing. No respiratory distress. Cardiac: RRR, -mrg. Radial pulses intact and symmetrical. Abdominal: Soft, nontender. Well-healed old ostomy scar at right lower quadrant. Bowel sounds intact Skin: Warm, dry. Results & Data Results & Data ([facility]) Vital Signs (Past 12 Hours) Vital Signs Temp Pulse Pulse Resp BP BP Pulse Ox 03/23/22 07:19 36.7 C 57 L 18 107/55 L 98 03/23/22 02:33 36.7 C 55 L 14 95/65 L 97 03/23/22 00:49 36.7 C 60 14 104/58 L 97 03/22/22 23:38 37 C 63 14 119/71 98 03/22/22 23:04 98 03/22/22 22:00 98 03/22/22 21:47 98 03/22/22 21:30 71 19 98 03/22/22 21:00 67 21 98 03/22/22 20:50 76 22 99 03/22/22 20:40 86 22 100 03/22/22 20:34 96 H 21 131/86 100 PG Care Time/CCT Total # of Minutes Spent Total Time Spent with Patient: Total time spent is greater than 50% in coordination of care (as documented) at patient's floor/unit and/or counseling patient: Coding Level of Care Code 36460 Subseq Hosp Care Lvl 3 Diagnoses Generalized intestinal dysmotility K59.89 Stercoral colitis K52.89 Chronic constipation K59.09 GI bleed K92.2 Iron deficiency anemia D50.9 Chronic headaches R51.9; G89.29 Hypoalbuminemia E88.09
--- NOTE | 2022-03-23 08:06 | CT Scan Report ---
CT OF THE ABDOMEN AND PELVIS WITH CONTRAST CLINICAL HISTORY: GI bleed. COMPARISON STUDY: CT of the abdomen and pelvis July 17, 2021. TECHNIQUE: Following IV administration of 94 mL of Optiray, axial images of the abdomen and pelvis we re obtained from the lung bases to the proximal femurs. Images were reviewed in the axial, sagittal, and coronal planes. IV contrast was administered without complication. Automated exposure control wa s utilized for the study. A dose lowering technique was utilized adhering to the principles of ALARA . CT DOSE: 1082.62 mGy.cm FINDINGS: Lung bases are unremarkable. No pneumatosis, free air or portal venous gas is present. Live r, spleen, adrenal glands, kidneys and pancreas are unremarkable. There is no biliary or pancreatic d uctal dilatation is no hydronephrosis. Prominent mesenteric lymph nodes are unchanged since CT of Jun [email or web address]. Large amount of stool within the colon and rectum is noted. Sigmoid resection is noted . Marked colonic dilatation is noted. This has decreased since CT of July 17, 2021. No transition point is identified. Wall thickening of the descending colon, remaining portion of the sigmoid colon and rectum is noted. This was shown on prior exam. There is mild adjacent stranding. Trace ascites is noted. This is unchanged. There is no abscess. Major vasculature is patent. No acute fracture or skyler picious lesion within the visualized skeletal structures is noted. Bladder is anteriorly displaced. T his is unchanged. No evidence for acute appendicitis. IMPRESSION: 1. Large amount of stool within the colon and rectum with marked colonic dilatation, decreased since prior exam. Persistent wall thickening of the left colon and rectum with adjacent stranding. This cou ld reflect stercoral colitis. No free air. No abscess. No evidence for a bowel obstruction. 2. No change in prominent mesenteric lymph nodes. These are nonspecific although probably reactive. ACT 112: Negative or not required by law. Electronically signed by: Brown Cleaning M.D. 03/23/2022 8:05 AM
[2022-03-23 08:17] LABS: Anion Gap 5 (3-11); BUN Creatinine Ratio 18.3 (10-20); Blood Urea Nitrogen 17 mg/dl (6-23); Calcium 7.8 mg/dl (8.5-10.1); Carbon Dioxide 23 mmol/L (21-32); Chloride 110 mmol/L (98-107); Creatinine Clr Calc Pharmacy 104.3 ml/min; Est GFR (African American) 134.6 ml/min; Est GFR (Non-African American) 116.1 ml/min; Glucose 89 mg/dl (70-99(Fasting)); Sodium 138 mmol/L (136-145)
[2022-03-23 08:20] LABS: Iron 372 mcg/dl (35-175); Magnesium 2.3 mg/dl (1.7-2.4); Unsaturated Iron Binding Cap < 55 mcg/dl (155-355)
[2022-03-23 08:26] LABS: Ferritin 6.8 ng/ml (8-388)
[2022-03-23] MEDS: PANTOprazole 40 MG in SYRINGE 0 ML IV SCH ×2 (08:40→21:02)
[2022-03-23 08:44] LABS: Anisocytosis Present; Basophils # (auto) 0.02 K/uL (0-0.2); Basophils % (auto) 0.4 %; Eosinophils % (auto) 3.7 %; Hypochromasia Present; Immature Granulocytes # (auto) 0.01 K/uL (0.00-0.02); Immature Granulocytes % (auto) 0.2 %; Lymphocytes # (auto) 1.55 K/uL (1.2-3.4); Microcytosis Present; Monocytes # (auto) 0.82 K/uL (0.11-0.59); Monocytes % (auto) 15.3 %; Neutrophils # (auto) 2.75 K/uL (1.4-6.5); Neutrophils % (auto) 51.4 %; Polychromasia 1+
--- NOTE | 2022-03-23 09:06 | Electrocardiogram Report ---
Test Reason : Blood Pressure : / mmHG Vent. Rate : 061 BPM Atrial Rate : 061 BPM P-R Int : 144 ms QRS Dur : 098 ms QT Int : 416 ms P-R-T Axes : 044 055 057 degrees QTc Int : 418 ms Normal sinus rhythm Incomplete right bundle branch block Normal ECG When compared with ECG of 29-SEP-2021 21:35, No significant change was found Confirmed by Davis Rowan ([id number]) on 03/23/2022 9:05:47 AM Referred By: REFERRED SELF Confirmed By:Davis Rowan
[2022-03-23] MEDS: LACTATED RINGER'S 1,000 ML IV SCH (13:39)
--- NOTE | 2022-03-23 16:18 | Gastrointestinal Consultation ---
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 Following hospital discharge, referral to [facility] for re evaluation and consideration of disimpaction under anesthesia, and consideration of total colectomy and ileostomy for longterm management. The underlying problem is failure of the internal anal sphincter to relax, leading to failure to evacuate and megacolon and megarectum There is chronic mucosal ischemia and breakdown with chronic GI bleeding which I feel will continue to deteriorate in the future, colectomy should be considered. We will follow and assist during this hospitalization as needed. History of Present Illness Reason for Consultation: Stercoral Colitis with chronic GI bleeding and blood loss anemia Attending Physician: Marco Nuñez MD History of Present Illness Mr. Mcdowell is a 21 year old man with history of achalasia of the internal anal sphincter with associated obstipation, megacolon and megarectum, and stercoral colitis with chronic GI bleeding and blood loss anemia. His regimen at home was 17 gm of Miralax twice daily. LInaclotide was prescribed, but he was not using this, and senna was prescribed in the past but he denied using this. With the Miralax, he was having 3-4 watery bowel movements daily with no visible blood. He came to the ED yesterday due to severe intractable headache and fatigue, and was found to have Hgb = 7.5, Hct = 27.5 and MCV = 66.6. In September, Hgb was 10.7 with Hct = 36.6%. Fecal occult blood test was positive in the ED. CTAP revealed stool filled megacolon and megarectum with wall thickening in the left colon and rectum with fat stranding consistent with stercoral colitis. The colon distension was improved over previous CTAP in June 2021. Allergies Allergy/AdvReac Type Severity Reaction Status Date / Time No Known Allergies Allergy Verified 03/22/22 22:14 Home Medications Medication Instructions Recorded Confirmed Type acetaminophen 500 mg tablet 1,000 mg PO DAILY PRN 03/22/22 03/22/22 History polyethylene glycol 3350 17 gram 17 g PO DAILY 03/22/22 03/22/22 History oral powder packet (Miralax) Patient History Medical History ADHD Anemia Colon ulcer Constipation Generalized intestinal dysmotility Neck mass Surgical History H/O colonoscopy History of colon resection d/t constipation 2016 @ [facility] History of esophagogastroduodenoscopy (EGD) Status post cecostomy Family History Family/Other No problems noted. Other No family history of adverse response to anesthesia Social History Smoking Status: Current some day smoker Tobacco Type: Cigarettes Cigarettes Per Day: 5; Second Hand Exposure: No; Do You Dip or Chew Tobacco: No; Tobacco Cessation Education Requested by Patient: No Hx Alcohol Use: Yes Alcohol type: wine and other Hx Substance Use: No Preferred Language: Georgian Communication Ability: Effective Bell Staff Required: No Beliefs That Will Affect Care: None Current Living Situation: Significant Other Current Living Situation Comment: Lives with Fiance. Other Information That Helps Us Care for You: No Feels Safe at Home: Yes Safety Concerns: Feels Safe At This Time Dental Care, Regularly: No Assistive Devices: None Review of Systems Review of Systems: All systems reviewed & are unremarkable except as noted in Subjective Physical Exam Constitutional: average body habitus and comfortable In no distress Respiratory: normal respiratory effort, lungs clear to auscultation Cardiovascular: RRR, no murmur, no edema Gastrointestinal (Abdomen): The abdomen does not appear distended, bowel sounds present but hypoactive and abnormal. No localized tenderness, guarding, no masses, no organomegaly Neurologic: No focal neurologic signs Results & Data ([facility]) Vital Signs (Past 12 Hours) Vital Signs Temp Pulse Pulse Resp BP Pulse Ox 03/23/22 15:29 37 C 62 16 114/53 L 98 03/23/22 07:19 36.7 C 57 L 18 107/55 L 98 Laboratory Results Laboratory Results WBC 5.35 K/uL (4.8-10.8) 03/23/22 06:50 RBC 4.06 M/uL (4.7-6.1) L 03/23/22 06:50 Hgb 7.5 g/dL (14.0-18.0) L 03/23/22 06:50 Hct 26.9 % (42-52) L 03/23/22 06:50 MCV 66.3 fL (80-100) L 03/23/22 06:50 MCH 18.5 pg (25-34) L 03/23/22 06:50 MCHC 27.9 g/dL (32-36) L 03/23/22 06:50 RDW Std Deviation 42.8 fL (36.4-46.3) 03/23/22 06:50 RDW Coeff of Paul 17.7 % (11.5-14.5) H 03/23/22 06:50 Plt Count 393 K/uL (130-400) 03/23/22 06:50 MPV 9.5 fL (7.4-10.4) 03/23/22 06:50 Immature Gran % (Auto) 0.2 % 03/23/22 06:50 Neut % (Auto) 51.4 % 03/23/22 06:50 Lymph % (Auto) 29.0 % 03/23/22 06:50 [place] % (Auto) 15.3 % 03/23/22 06:50 Eos % (Auto) 3.7 % 03/23/22 06:50 Baso % (Auto) 0.4 % 03/23/22 06:50 Reticulocyte % (Auto) 1.7 % (0.5-2.0) 03/22/22 19:02 Neut # (Auto) 2.75 K/uL (1.4-6.5) 03/23/22 06:50 Lymph # (Auto) 1.55 K/uL (1.2-3.4) 03/23/22 06:50 [place] # (Auto) 0.82 K/uL (0.11-0.59) H 03/23/22 06:50 Eos # (Auto) 0.20 K/uL (0-0.5) 03/23/22 06:50 Baso # (Auto) 0.02 K/uL (0-0.2) 03/23/22 06:50 Reticulocyte # 0.07 10^6/uL (0.02-0.10) 03/22/22 19:02 Immature Gran # (Auto) 0.01 K/uL (0.00-0.02) 03/23/22 06:50 Polychromasia 1+ 03/23/22 06:50 Hypochromasia Present 03/23/22 06:50 Anisocytosis Present 03/23/22 06:50 Microcytosis Present 03/23/22 06:50 Sodium 138 mmol/L (136-145) 03/23/22 06:50 Potassium 4.0 mmol/L (3.5-5.1) 03/23/22 06:50 Chloride 110 mmol/L (98-107) H 03/23/22 06:50 Carbon Dioxide 23 mmol/L (21-32) 03/23/22 06:50 Anion Gap 5 (3-11) 03/23/22 06:50 BUN 17 mg/dl (6-23) 03/23/22 06:50 Creatinine 0.93 mg/dl (0.6-1.4) 03/23/22 06:50 Est Cr Clr Drug Dosing 104.3 ml/min 03/23/22 06:50 Est GFR ( Amer) 134.6 ml/min 03/23/22 06:50 Est GFR (Non-Af Amer) 116.1 ml/min 03/23/22 06:50 BUN/Creatinine Ratio 18.3 (10-20) 03/23/22 06:50 Glucose 89 mg/dl (70-99(Fasting)) 03/23/22 06:50 Calcium 7.8 mg/dl (8.5-10.1) L 03/23/22 06:50 Magnesium 2.3 mg/dl (1.7-2.4) 03/23/22 06:50 Iron 372 mcg/dl (35-175) H 03/23/22 06:50 TIBC TNP 03/23/22 06:50 Unsaturated IBC < 55 mcg/dl (155-355) L 03/23/22 06:50 Transferrin % Sat TNP 03/23/22 06:50 Ferritin 6.8 ng/ml (8-388) L 03/23/22 06:50 Total Bilirubin 0.2 mg/dl (0.2-1.0) 03/22/22 19:02 AST 23 U/L (13-39) 03/22/22 19:02 ALT 9 U/L (7-52) 03/22/22 19:02 Alkaline Phosphatase 114 U/L (34-104) H 03/22/22 19:02 Total Protein 5.4 gm/dl (6.0-8.3) L 03/22/22 19:02 Albumin 3.0 gm/dl (3.4-5.0) L 03/22/22 19:02 Globulin 2.4 gm/dl (2.5-4.0) L 03/22/22 19:02 Albumin/Globulin Ratio 1.3 (0.9-2) 03/22/22 19:02 Prealbumin 11.4 mg/dl (20-40) L 03/22/22 19:02 TSH 0.875 uIu/ml (0.300-4.500) 03/22/22 19:02 Stool Occult Bld Scrn Positive (Negative) A 03/23/22 Unknown Acetaminophen 9 ug/ml (10-30) L 03/23/22 00:44 SARS-CoV-2, RNA, NAAT NEGATIVE (NEGATIVE) 03/22/22 Unknown Blood Type O Positive 03/22/22 20:38 Antibody Screen NEGATIVE 03/22/22 20:38 Crossmatch See Detail 03/22/22 20:[address] 03/22/22 19:40 CT head/brain wo con CLINICAL HISTORY: 21 years-old Male with dizzy, headache. Acute headache with dizziness TECHNIQUE: Multiple axial CT images of the head were obtained without contrast. A dose lowering technique was utilized adhering to the principles of ALARA. COMPARISON: None. FINDINGS: No acute intracranial hemorrhage, midline shift, intracranial mass, hydrocephalus, territorial ischemia or abnormal extra-axial collection. Streak artifact from the patient's earrings. The calvarium is intact. The mastoid air cells are clear. Mild mucosal thickening of the paranasal sinuses. IMPRESSION: No acute intracranial abnormality. ACT 112: Negative or not required by law. The above report was generated using voice recognition software. It may contain grammatical, syntax or spelling errors. Electronically signed by: Pratik Ambriz M.D. 03/23/2022 6:38 AM Abdomen/Pelvis CT 03/22/22 20:08 CT OF THE ABDOMEN AND PELVIS WITH CONTRAST CLINICAL HISTORY: GI bleed. COMPARISON STUDY: CT of the abdomen and pelvis July 17, 2021. TECHNIQUE: Following IV administration of 94 mL of Optiray, axial images of the abdomen and pelvis were obtained from the lung bases to the proximal femurs. Images were reviewed in the axial, sagittal, and coronal planes. IV contrast was administered without complication. Automated exposure control was utilized for the study. A dose lowering technique was utilized adhering to the principles of ALARA. CT DOSE: 1082.62 mGy.cm FINDINGS: Lung bases are unremarkable. No pneumatosis, free air or portal venous gas is present. Liver, spleen, adrenal glands, kidneys and pancreas are unremarkable. There is no biliary or pancreatic ductal dilatation is no hydronephrosis. Prominent mesenteric lymph nodes are unchanged since CT of July 17, 2021. Large amount of stool within the colon and rectum is noted. Sigmoid resection is noted. Marked colonic dilatation is noted. This has decreased since CT of July 17, 2021. No transition point is identified. Wall thickening of the descending colon, remaining portion of the sigmoid colon and rectum is noted. This was shown on prior exam. There is mild adjacent stranding. Trace ascites is noted. This is unchanged. There is no abscess. Major vasculature is patent. No acute fracture or suspicious lesion within the visualized skeletal structures is noted. Bladder is anteriorly displaced. This is unchanged. No evidence for acute appendicitis. IMPRESSION: 1. Large amount of stool within the colon and rectum with marked colonic dila tation, decreased since prior exam. Persistent wall thickening of the left colon and rectum with adjacent stranding. This could reflect stercoral colitis. No free air. No abscess. No evidence for a bowel obstruction. 2. No change in prominent mesenteric lymph nodes. These are nonspecific although probably reactive. ACT 112: Negative or not required by law. Electronically signed by: Brown Cleaning M.D. 03/23/2022 8:05 AM
[2022-03-23] MEDS: POLYETHYLENE (MIRALAX) 17 GM PACK PO SCH (21:02)
--- NOTE | 2022-03-23 22:39 | Billing Data ---
Date of Service March 23, 2022 Coding Level of Care Code 12891 Initial Inpt Care Lvl 3
[2022-03-24 06:11] LABS: BUN Creatinine Ratio 13.6 (10-20); Calcium 7.8 mg/dl (8.5-10.1); Creatinine Clr Calc Pharmacy 94.2 ml/min; Est GFR (Non-African American) 102.6 ml/min
[2022-03-24 06:36] LABS: Folate (Folic Acid) 6.89 ng/ml (>5.38)
[2022-03-24 06:39] LABS: Hematocrit (blood only) 26.2 % (42-52); Hemoglobin 7.3 g/dL (14.0-18.0); Mean Corpuscular Hemoglobin 18.9 pg (25-34); Mean Corpuscular Hgb Conc 27.9 g/dL (32-36); Mean Corpuscular Volume 67.7 fL (80-100); Mean Platelet Volume 9.3 fL (7.4-10.4); Platelet Count 393 K/uL (130-400); RDW Coefficient of Variation 17.7 % (11.5-14.5); RDW Standard Deviation 43.5 fL (36.4-46.3); Red Blood Count 3.87 M/uL (4.7-6.1); White Blood Count 5.44 K/uL (4.8-10.8)
[2022-03-24] MEDS ORDERED: IRON SUCROSE 300 MG in SODIUM CHLORIDE 0.9% 250 ML IV ONE (07:00)
[2022-03-24 07:07] LABS: Basophils # (auto) 0.01 K/uL (0-0.2); Basophils % (auto) 0.2 %; Eosinophils # (auto) 0.28 K/uL (0-0.5); Eosinophils % (auto) 5.1 %; Hypochromasia Present; Immature Granulocytes # (auto) 0.02 K/uL (0.00-0.02); Immature Granulocytes % (auto) 0.4 %; Lymphocytes # (auto) 1.58 K/uL (1.2-3.4); Microcytosis Present; Monocytes # (auto) 0.84 K/uL (0.11-0.59); Monocytes % (auto) 15.4 %; Neutrophils # (auto) 2.71 K/uL (1.4-6.5); Neutrophils % (auto) 49.9 %
[2022-03-24] MEDS: POLYETHYLENE (MIRALAX) 17 GM PACK PO SCH (07:32)
[2022-03-24] MEDS: PANTOprazole 40 MG in SYRINGE 0 ML IV SCH (07:32)
--- NOTE | 2022-03-24 08:31 | Gastroenterology Progress Note ---
Date of Service March 24, 2022 Assessment & Plan (1) Megacolon, other than Hirschsprung's: Plan: Megacolon: Continue MiraLAX 17 g twice daily and resume linaclotide (not available on formulary at [facility]) as an outpatient, he can use senna in the hospital. Following hospital discharge, referral to [facility] for re evaluation and consideration of disimpaction under anesthesia, and consideration of total colectomy and ileostomy for terminal operations supervisor management. The underlying problem is failure of the internal anal sphincter to relax, leading to failure to evacuate and megacolon and megarectum There is chronic mucosal ischemia and breakdown with chronic GI bleeding which I feel will continue to deteriorate in the future, colectomy should be considered. We will follow and assist during this hospitalization as needed. Case reviewed with Dr. Plasencia. Please refer to supervising physician addendum for further recommendations. I have spent 15 minutes of discrete time performing the activities of this visit which include but are not limited to review of the medical record, obtaining a history, physical exam, and entering information in the electronic record. (2) Megarectum: (3) Generalized intestinal dysmotility: (4) Obstipation: (5) Stercoral colitis: (6) Chronic GI bleeding: (7) Blood loss anemia: Admission and Anticipated Discharge Date Admission Date: March 22, 2022 Supervising Physician Co-Signing Physician Notes I interviewed and examined the patient and reviewed the medical record, with the following observations: Subjective: No new complaints Physical Examination: Soft nontender abdominal examination Chart Review: No change in lab findings, note very low ferritin level, con sistent with low body iron stores I agree with the assessment as outlined in this consultation, with the following observations: My impression is that the colon is nonfunctional and ischemic, with substantial risk of perforation in the future I agree with the plan of care as outlined in this consultation, with the following changes and/or additions: I have already generated an outpatient referral to [facility] for evaluation of megacolon and stercoral colitis. This was discussed with Mr. Mcdowell. Our office will be contacting him to make arrangements for the outpatient consultation. As the supervising physician, I have spent 15 minutes of discrete time performing the activities of this consultation which include, but are not limited to, review of the medical record, obtaining a history, physical examination, and entering information into the electronic record. ALDO Luna, has reported spending 15 minutes of discrete time with the activities of the consultation. Subjective Patient sleeping this morning. Awakens easily with verbal stimuli. States he feels okay. Denies any abdominal pain, nausea, vomiting. He is receiving iron infusion this morning. He reports 10+ bowel movements through the night after using MiraLAX. He does report compliance with MiraLAX twice daily at home. Review of Systems Review of Systems: All systems reviewed & are unremarkable except as noted in Subjective Physical Exam Constitutional: comfortable Respiratory: normal respiratory effort, lungs clear to auscultation Cardiovascular: RRR, no murmur, no edema Gastrointestinal (Abdomen): The abdomen does not appear distended, bowel soun ds present but hypoactive and abnormal. No localized tenderness, guarding, no masses, no organomegaly Results & Data ([facility]) Vital Signs (Past 12 Hours) Vital Signs Temp Pulse Resp BP Pulse Ox 03/24/22 07:43 36.5 C 69 16 121/66 99 03/23/22 22:33 36.9 C 76 18 103/62 97 Laboratory Results Laboratory Results - last 24 hr 03/23/22 03/23/22 03/23/22 06:50 13:15 18:10 WBC RBC Hgb Hct MCV MCH MCHC RDW Std Deviation RDW Coeff of Paul Plt Count MPV Immature Gran % (Auto) 0.2 Neut % (Auto) 51.4 Lymph % (Auto) 29.0 [place] % (Auto) 15.3 Eos % (Auto) 3.7 Baso % (Auto) 0.4 Neut # (Auto) 2.75 Lymph # (Auto) 1.55 [place] # (Auto) 0.82 H Eos # (Auto) 0.20 Baso # (Auto) 0.02 Immature Gran # (Auto) 0.01 Polychromasia 1+ Hypochromasia Present Anisocytosis Present Microcytosis Present Sodium Potassium Chloride Carbon Dioxide Anion Gap BUN Creatinine Est Cr Clr Drug Dosing Est GFR ( Amer) Est GFR (Non-Af Amer) BUN/Creatinine Ratio Glucose Calcium Vitamin B12 Folate Stool Occult Bld Scrn Positive A Negative 03/23/22 03/24/22 03/24/22 Unknown 05:31 05:31 WBC 5.44 RBC 3.87 L Hgb 7.3 L Hct 26.2 L MCV 67.7 L MCH 18.9 L MCHC 27.9 L RDW Std Deviation 43.5 RDW Coeff of Paul 17.7 H Plt Count 393 MPV 9.3 Immature Gran % (Auto) 0.4 Neut % (Auto) 49.9 Lymph % (Auto) 29.0 [place] % (Auto) 15.4 Eos % (Auto) 5.1 Baso % (Auto) 0.2 Neut # (Auto) 2.71 Lymph # (Auto) 1.58 [place] # (Auto) 0.84 H Eos # (Auto) 0.28 Baso # (Auto) 0.01 Immature Gran # (Auto) 0.02 Polychromasia Hypochromasia Present Anisocytosis Microcytosis Present Sodium 139 Potassium 4.0 Chloride 108 H Carbon Dioxide 27 Anion Gap 4 BUN 14 Creatinine 1.03 Est Cr Clr Drug Dosing 94.2 Est GFR ( Amer) 119.0 Est GFR (Non-Af Amer) 102.6 BUN/Creatinine Ratio 13.6 Glucose 106 H Calcium 7.8 L Vitamin B12 Folate Stool Occult Bld Scrn Positive A 03/24/22 05:31 WBC RBC Hgb Hct MCV MCH MCHC RDW Std Deviation RDW Coeff of Paul Plt Count MPV Immature Gran % (Auto) Neut % (Auto) Lymph % (Auto) [place] % (Auto) Eos % (Auto) Baso % (Auto) Neut # (Auto) Lymph # (Auto) [place] # (Auto) Eos # (Auto) Baso # (Auto) Immature Gran # (Auto) Polychromasia Hypochromasia Anisocytosis Microcytosis Sodium Potassium Chloride Carbon Dioxide Anion Gap BUN Creatinine Est Cr Clr Drug Dosing Est GFR ( Amer) Est GFR (Non-Af Amer) BUN/Creatinine Ratio Glucose Calcium Vitamin B12 295 Folate 6.89 Stool Occult Bld Scrn
--- NOTE | 2022-03-24 11:32 | Hospitalist Progress Note ---
Date of Service March 24, 2022 Assessment & Plan (1) Generalized intestinal dysmotility: Plan: Dion Mcdowell is a 21yo male with PMHx significant for longstanding constipation (with encopresis since age 4) with associated colonic dysmotility (s/p partial sigmoidectomy in 2017), iron deficiency anemia requiring IV iron infusions in the past (baseline Hgb ranges mostly from 8-10), chronic headaches, ADHD, and ODD who presented to [facility] ED on 03/22 for worsening headaches and lightheadedness for several weeks. Chronic Constipation, with associated colonic dysmotility; Stercoral Colitis Chronic problem not adequately treated with daily Miralax. Patient has 2-3 small liquid stools per day which likely represent overflow diarrhea. CT A/P showing marked colonic distension with significant retained stool - left colon measured 11cm at widest (slightly improved from 06/2021 CT scan). With evidence of distal rectosigmoid colonic wall thickening which may represent stercoral colitis (due to chronic constipation). -Much improved with addition of MiraLAX - GI consulted - appreciate recs - PRN Tylenol for pain Acute on Chronic Iron-Deficiency Anemia; GI bleed Hgb chronically low. Continue oral iron supplementation at discharge. Previously established diagnosis of iron deficiency anemia. Patient has not seen Hematology for ~3 years and has not had iron infusions for same amount of time - suspect worsening iron deficiency as cause of anemia and associated lightheadedness and headaches. -Has been given iron sucrose 300mg IV x1 -Needs outpatient Heme/Onc follow-up GI Bleed Heme occult positive in the ED, albeit without melena/hematochezia/diarrhea. -Continue oral iron supplementation at discharge -- Protonix therapy - GI consulted appreciate Chronic Headaches - more frequent and severe as of late - likely due to worsening anemia. Improved with Tylenol. - s/p migraine cocktail in the ED - with improvement in pain - continue with PRN Tylenol for pain - avoid NSAIDs in context of GI bleed Hypoalbuminemia; Malnutrition Albumin 3.0. In context of severe chronic constipation and VIC, concerning for chronic malnutrition. - consider cda teacher consult at later time DVT Prophylaxis: Early ambulation Code Status: full code Disposition: Discharge to home today, March 24 (2) Stercoral colitis: (3) Chronic constipation: (4) GI bleed: (5) Iron deficiency anemia: (6) Chronic headaches: (7) Hypoalbuminemia: Admission and Anticipated Discharge Date Admission Date: March 22, 2022 Subjective Alert and oriented. Bowels are moving frequently with addition of MiraLAX. He is anxious to go home today. Hemoglobin is chronically low. He will remain on oral iron supplements along with the MiraLAX. Review of Systems Review of Systems: Constitutional-no fever or chills ENT-no blurred vision, no double vision, no epistaxis, no sore throat Respiratory-no cough, no wheezing, no shortness of breath Cardiac-no palpitations, no chest pain, no syncope GI-no nausea, vomiting, diarrhea, melena, hematochezia -no urinary retention, no urinary incontinence, no dysuria, no hematuria Musculoskeletal-no joint pain, no muscle tenderness Skin-no bruising, no rashes, no pruritus Neuro-no isolated weakness, no paresthesia, no weakness Psych-no depression, no anxiety Physical Exam Physical Exam: General-alert and oriented x3, no fevers, no chills HEENT-head atraumatic and normocephalic, TMs intact bilaterally, pupils equal and reactive to light, extraocular muscles intact Neck-no lymphadenopathy or thyromegaly, trachea midline Chest-clear to auscultation percussion. No rales wheezing or rhonchi Cardiac-regular rate and rhythm, normal S1 and S2, no murmurs Abdomen-normal bowel sounds, nontender, no hepatosplenomegaly Extremities-no cyanosis, clubbing, or edema Neuro-cranial nerves II through XII intact, motor and sensory function within normal limits, strength symmetrical , no focal deficits Psych-normal affect, normal mood Results & Data Results & Data ([facility]) Vital Signs (Past 12 Hours) Vital Signs Temp Pulse Resp BP Pulse Ox 03/24/22 07:43 36.5 C 69 16 121/66 99 Laboratory Results 03/24/22 05:31 03/24/22 05:31 PG Care Time/CCT Total # of Minutes Spent Total Time Spent with Patient: Total time spent is greater than 50% in coordination of care (as documented) at patient's floor/unit and/or counseling patient: Coding Level of Care Code 70782 Subseq Hosp Care Lvl 3 Diagnoses Generalized intestinal dysmotility K59.89 Stercoral colitis K52.89 Chronic constipation K59.09 GI bleed K92.2 Iron deficiency anemia D50.9 Chronic headaches R51.9; G89.29 Hypoalbuminemia E88.09
--- NOTE | 2022-03-24 11:34 | Discharge Summary ---
Date of Service March 24, 2022 Admission HPI Per Admitting Provider Dion Mcdowell is a 21yo male with PMHx significant for longstanding constipation (with encopresis since age 4) with associated colonic dysmotility (s/p partial sigmoidectomy in 2017), iron deficiency anemia requiring IV iron infusions in the past (baseline Hgb ranges mostly from 8-10), chronic headaches, ADHD, and ODD who presented to [facility] ED on 03/22 for worsening headaches and lightheadedness for several weeks. Patient reports that he was "lost to follow up" with [facility] as well as Hematology via our cancer center and has not seen them for constipation or for VIC for several years. He is taking Miralax 17g BID sche duled but has not taken PO or IV iron formulations for several years. Over the last several months he has noticed progressively decreased energy, worsening fatigue, and more frequent headaches. In the past he has intermittently been non-compliant with iron treatments and has become more anemic, and he reports that his headaches get worse along with his anemia. Patient denies hematochezia, melena, or abnormal stools. He usually has 2-3 small, watery stools per day. Has not had a formed stool for "a while". Denies hemorrhoids or pain with BMs. Patient has taken Tylenol 1000-1500mg PO Q6H every day (total 4-6g per day) over last several weeks for worsening headaches which has helped. Denies associated photosensitivity/photosensitivity, N/V, or focal weakness/numbness. Did vomit once yesterday when he was feeling lightheaded but denies associated headache at that time. Denies smoking or drug use. Reports only occasional alcohol use several times per month. He lives with his girlfriend for the last month, and they work together in [employer]. In the ED the patient was hemodynamically stable on room air. Hgb 7.9 (just below baseline) with MCV 66.6 and MCHC 28.7. FOBT was positive. Ca 7.9 (corrected 8.7). CT A/P showed marked colonic distension with significant retained stool - left colon measured 11cm at widest (slightly improved from 06/2021 CT scan). With evidence of distal rectosigmoid colonic wall thickening which may represent stercoral colitis. CT head showed mild mucosal thickening of paranasal sinuses but no acute intracranial process. Patient was given Compazine/Toradol/Tylenol/Benadryl for headache which led to significant improvement. Was given 1L NSS bolus. Was also given Protonix 80mg IV loading dose for possible upper GI bleed. Principal Diagnosis Chronic constipation with megacolon, headache and lightheadedness, acute on chronic exacerbation of iron deficiency anemia, chronic Hemoccult positive stool Discharge Exam General-alert and oriented x3, no fevers, no chills HEENT-head atraumatic and normocephalic, TMs intact bilaterally, pupils equal a nd reactive to light, extraocular muscles intact Neck-no lymphadenopathy or thyromegaly, trachea midline Chest-clear to auscultation percussion. No rales wheezing or rhonchi Cardiac-regular rate and rhythm, normal S1 and S2, no murmurs Abdomen-normal bowel sounds, nontender, no hepatosplenomegaly Extremities-no cyanosis, clubbing, or edema Neuro-cranial nerves II through XII intact, motor and sensory function within normal limits, strength symmetrical , no focal deficits Psych-normal affect, normal mood Discharge Data Allergies Allergy/AdvReac Type Severity Reaction Status Date / Time No Known Allergies Allergy Verified 03/22/22 22:14 Consultations 03/22/22 20:15 ED Decision to Admit Stat 03/22/22 22:43 Consult Gastroenterology Routine Ordered Studies 03/22/22 19:40 CT head/brain wo con Urgent 03/22/22 20:08 CT abd pelvis IV con only Urgent Hospital Course (1) Generalized intestinal dysmotility: Dion Mcdowell is a 21yo male with PMHx significant for longstanding constipation (with encopresis since age 4) with associated colonic dysmotility (s/p partial sigmoidectomy in 2017), iron deficiency anemia requiring IV iron infusions in the past (baseline Hgb ranges mostly from 8-10), chronic headaches, ADHD, and ODD who presented to [facility] ED on 03/22 for worsening headaches and lightheadedness for several weeks. Chronic Constipation, with associated colonic dysmotility; Stercoral Colitis Chronic problem not adequately treated with daily Miralax. Patient has 2-3 small liquid stools per day which likely represent overflow diarrhea. CT A/P showing marked colonic distension with significant retained stool - left colon measured 11cm at widest (slightly improved from 06/2021 CT scan). With evidence of distal rectosigmoid colonic wall thickening which may represent stercoral colitis (due to chronic constipation). -Much improved with addition of MiraLAX - GI consulted - appreciate recs - PRN Tylenol for pain Acute on Chronic Iron-Deficiency Anemia; GI bleed Hgb chronically low. Continue oral iron supplementation at discharge. Prev iously established diagnosis of iron deficiency anemia. Patient has not seen Hematology for ~3 years and has not had iron infusions for same amount of time - suspect worsening iron deficiency as cause of anemia and associated lightheadedness and headaches. -Has been given iron sucrose 300mg IV x1 -Needs outpatient Heme/Onc follow-up GI Bleed Heme occult positive in the ED, albeit without melena/hematochezia/diarrhea. -Continue oral iron supplementation at discharge -- Protonix therapy - GI consulted appreciate Chronic Headaches - more frequent and severe as of late - likely due to worsening anemia. Improved with Tylenol. - s/p migraine cocktail in the ED - with improvement in pain - continue with PRN Tylenol for pain - avoid NSAIDs in context of GI bleed Hypoalbuminemia; Malnutrition Albumin 3.0. In context of severe chronic constipation and VIC, concerning for chronic malnutrition. - consider architecture drafter consult at later time DVT Prophylaxis: Early ambulation Code Status: full code Disposition: Discharge to home today, March 24 (2) Stercoral colitis: (3) Chronic constipation: (4) GI bleed: (5) Iron deficiency anemia: (6) Chronic headaches: (7) Hypoalbuminemia: Total Time Total Time Spent Total Time Spent (In Minutes): 35 minutes Discharge Plan Discharge Items Patient Disposition: Home - Self-Care Reason For Visit: CONSTIPATION, ANEMIA, ?GIB Discharge Diagnosis: Chronic constipation, acute on chronic iron deficiency anemia, headache with lightheadedness Condition on Discharge: Fair Non-emergency contact: Primary Care Provider Call non-emergency contact if: you have any medication questions Follow-up/Referrals: Anila Willis CRNP [Primary Care Provider] - Diet: Regular Addtl Attending Provider Instructions: Continue iron supplements and MiraLAX at discharge Pending Studies at Discharge: No Stand-Alone Forms: My [employer], Smoking Cessation Medications and DC Order Prescriptions: New polyethylene glycol 3350 [Miralax] 17 gram Powder In Packet 17 g PO BID 30 Days Qty: 360 RF: 0 ferrous gluconate 324 mg (37.5 mg iron) tablet 324 mg PO BID Qty: 60 RF: 0 Continued acetaminophen 500 mg Tablet 1,000 mg PO DAILY PRN (Reason: Pain) RF: 0 Discontinued polyethylene glycol 3350 [Miralax] 17 gram Powder In Packet 17 g PO DAILY RF: 0 Discharge Orders: Discharge Order (Routine); Ordered 03/24/22 Ordered By: Manny Carter Admission Data Admit Date/Time: 03/22/22 22:43 Attending Provider: Manny Carter Admit Provider: Mani Shelley Primary Care Provider: Anila Willis Other Providers: Mani Shelley ; Angelito Plasencia Coding Level of Care Code D/C DAY MANAGEMENT >30 MINS Diagnoses Generalized intestinal dysmotility K59.89 Stercoral colitis K52.89 Chronic constipation K59.09 GI bleed K92.2 Iron deficiency anemia D50.9 Chronic headaches R51.9; G89.29 Hypoalbuminemia E88.09
--- NOTE | 2022-03-24 11:54 | Discharge Summary ---
Date of Service March 24, 2022 Admission HPI Per Admitting Provider Dion Mcdowell is a 21yo male with PMHx significant for longstanding constipation (with encopresis since age 4) with associated colonic dysmotility (s/p partial sigmoidectomy in 2017), iron deficiency anemia requiring IV iron infusions in the past (baseline Hgb ranges mostly from 8-10), chronic headaches, ADHD, and ODD who presented to [facility] ED on 03/22 for worsening headaches and lightheadedness for several weeks. Patient reports that he was "lost to follow up" with [facility] as well as Hematology via our cancer center and has not seen them for constipation or for VIC for several years. He is taking Miralax 17g BID sche duled but has not taken PO or IV iron formulations for several years. Over the last several months he has noticed progressively decreased energy, worsening fatigue, and more frequent headaches. In the past he has intermittently been non-compliant with iron treatments and has become more anemic, and he reports that his headaches get worse along with his anemia. Patient denies hematochezia, melena, or abnormal stools. He usually has 2-3 small, watery stools per day. Has not had a formed stool for "a while". Denies hemorrhoids or pain with BMs. Patient has taken Tylenol 1000-1500mg PO Q6H every day (total 4-6g per day) over last several weeks for worsening headaches which has helped. Denies associated photosensitivity/photosensitivity, N/V, or focal weakness/numbness. Did vomit once yesterday when he was feeling lightheaded but denies associated headache at that time. Denies smoking or drug use. Reports only occasional alcohol use several times per month. He lives with his girlfriend for the last month, and they work together in [employer]. In the ED the patient was hemodynamically stable on room air. Hgb 7.9 (just below baseline) with MCV 66.6 and MCHC 28.7. FOBT was positive. Ca 7.9 (corrected 8.7). CT A/P showed marked colonic distension with significant retained stool - left colon measured 11cm at widest (slightly improved from 06/2021 CT scan). With evidence of distal rectosigmoid colonic wall thickening which may represent stercoral colitis. CT head showed mild mucosal thickening of paranasal sinuses but no acute intracranial process. Patient was given Compazine/Toradol/Tylenol/Benadryl for headache which led to significant improvement. Was given 1L NSS bolus. Was also given Protonix 80mg IV loading dose for possible upper GI bleed. Principal Diagnosis Chronic constipation with megacolon, acute on chronic iron deficiency anemia, headache with lightheadedness Discharge Data Allergies Allergy/AdvReac Type Severity Reaction Status Date / Time No Known Allergies Allergy Verified 03/22/22 22:14 Consultations 03/22/22 20:15 ED Decision to Admit Stat 03/22/22 22:43 Consult Gastroenterology Routine Ordered Studies 03/22/22 19:40 CT head/brain wo con Urgent 03/22/22 20:08 CT abd pelvis IV con only Urgent Total Time Total Time Spent Total Time Spent (In Minutes): 35 minutes Discharge Plan Discharge Items Patient Disposition: Home - Self-Care Reason For Visit: CONSTIPATION, ANEMIA, ?GIB Discharge Diagnosis: Chronic constipation, acute on chronic iron deficiency anemia, headache with lightheadedness Condition on Discharge: Fair Activity: Resume your previous activity Non-emergency contact: Primary Care Provider Call non-emergency contact if: you have any medication questions Follow-up/Referrals: Anila Willis CRNP [Primary Care Provider] - 04/01/22 3:00 pm Diet: Regular Addtl Attending Provider Instructions: Continue iron supplements and MiraLAX at discharge Pending Studies at Discharge: No Stand-Alone Forms: My [facility] [employer], Smoking Cessation, Work/School Release Medications and DC Order Prescriptions: New polyethylene glycol 3350 [Miralax] 17 gram Powder In Packet 17 g PO BID 30 Days Qty: 360 RF: 0 ferrous gluconate 324 mg (37.5 mg iron) tablet 324 mg PO BID Qty: 60 RF: 0 Continued acetaminophen 500 mg Tablet 1,000 mg PO DAILY PRN (Reason: Pain) RF: 0 Discontinued polyethylene glycol 3350 [Miralax] 17 gram Powder In Packet 17 g PO DAILY RF: 0 Discharge Orders: Discharge Order (Routine); Ordered 03/24/22 Ordered By: Manny Carter Admission Data Admit Date/Time: 03/22/22 22:43 Attending Provider: Manny Carter Admit Provider: Mani Shelley Primary Care Provider: Anila Willis Other Providers: Mani Shelley ; Angelito Plasencia Coding Level of Care Code D/C DAY MANAGEMENT >30 MINS
== END 2022-03-24 16:50 | disposition home or self-care (01) | DRG 394 ==
LOC: ED 16:20 → 3N 22:43 → SUATTDRO 22:43 → 3N 23:38